=== PATIENT | male | born 1940 | race Caucasian/White ===

== ENCOUNTER 2021-04-07 12:19 | Inpatient (IN) ==
[2021-04-07] MEDS ORDERED: SODIUM CHLORIDE 0.9% 1000ML 1,000 ML IV ONE ×2 (12:37→14:08)
[2021-04-07 12:48] LABS: Hematocrit (blood only) 49.1 % (42-52); Hemoglobin 16.2 g/dL (14.0-18.0); Mean Corpuscular Hemoglobin 26.8 pg (25-34); Mean Corpuscular Volume 81.3 fL (80-100); Mean Platelet Volume 11.5 fL (7.4-10.4); Platelet Count 206 K/uL (130-400); RDW Coefficient of Variation 14.5 % (11.5-14.5); RDW Standard Deviation 43.3 fL (36.4-46.3); Red Blood Count 6.04 M/uL (4.7-6.1); White Blood Count 9.35 K/uL (4.8-10.8)
[2021-04-07 12:49] LABS: iSTAT Creatinine 1.5 mg/dl (0.6-1.3); iSTAT Hemoglobin 16.7 g/dl (14.0-18.0); iSTAT Ionized Calcium 1.22 mmol/l (1.12-1.32); iSTAT Potassium 4.2 mmol/L (3.3-5.0)
--- NOTE | 2021-04-07 12:53 | CT Scan Report ---
CT head/brain wo con CLINICAL HISTORY: Acute stroke like symptoms. Left-sided weakness and slurred speech COMPARISON STUDY: 05/22/2019 TECHNIQUE: Axial CT of the brain is performed from the vertex to the skull base. IV contrast was not administered for this examination. A dose lowering technique was utilized adhering to the principles of ALARA. CT DOSE: 614.27 mGy.cm FINDINGS: No intra or extra-axial mass lesions are visualized. There is no CT evidence of acute cortical infarc tion. There is no evidence of midline shift. There is no acute hemorrhage. No calvarial fractures ar e visualized. There are patchy white matter hypodensities likely on a small vessel basis. 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 There is no evidence of pathologic ventricular dilatation. There is no evidence of acute sinusitis IMPRESSION: No acute intracranial findings ACT 112: Negative or not required by law. Electronically signed by: German Ceballos M.D. 04/07/2021 12:52 PM
--- NOTE | 2021-04-07 12:55 | XRay Report ---
XR chest 1V portable CLINICAL HISTORY: Acute stroke like symptoms COMPARISON STUDY: 05/22/2019 FINDINGS: The heart is enlarged. There is aortic tortuosity/ectasia. There is slight interstitial pro minence which is likely accentuated due to a suboptimal inspiration. There is no lobar consolidation. There are no large pleural effusions. There is no overt failure. There is a total right shoulder art hroplasty.[ IMPRESSION: Cardiomegaly. No evidence of focal pulmonary consolidation. ACT 112: Negative or not required by law. Electronically signed by: German Ceballos M.D. 04/07/2021 12:53 PM
--- NOTE | 2021-04-07 12:57 | Emergency Department Note ---
Impression & Plan Acute cerebrovascular accident (CVA), Received intravenous tissue plasminogen activator (tPA) in emergency department, Hypertension ED Provider Note NAME: ROMERO MAST AGE: 80 SEX: M ARRIVES VIA: Walk-In INFORMANT: Patient, ED PROVIDER(S): Wes Terry MD CHIEF COMPLAINT: Stroke symptoms PLAN: Disposition: Admit Patient seen at: 1245 MEDICAL DECISION MAKING: The patient is a pleasant 80-year-old gentleman with a past medical history of hypertension who presents emergency department coming by his with concern for strokelike symptoms where she noticed that he quickly began confused and had trouble speaking with weakness on his right side where she feels confident he will see his normal self at 11 AM when he was sitting on the couch but has a entered the car to proceed with a trip that plan she noticed he could not speak and so brought him to emergency department. A stroke alert was activated from triage and CT of the head and CTA of the head and neck were performed. Shortly after arrival the patient began to have progressive improvement in his speech with only mild aphasia and right upper extremity weakness. On arrival the patient is in no acute distress, afebrile with blood pressure 160s/90s and vital signs otherwise stable. He appears clinically dry. He has trouble naming but is able to ascertain the name with prompts for objects such as watch and pen. He has very subtle right upper extremity pronator drift. Case was discussed with [facility] stroke neurologist Dr. Malcolm who was evaluating the patient via telestroke monitor. TPA was mixed upon arrival giving compelling history for stroke. CT of the head without evidence of acute ischemia or ICH. CTA of the head and neck with greater than 80% diameter left ICA stenosis and moderate cerebrovascular disease but no large vessel occlusion. WBC, H/H and platelets within normal limits. Chemistry without metabolic acidosis. BUN 22 and creatinine 1.4 proximal to prior value 2 years ago. Electrolytes and LFTs unremarkable. Troponin negative/undetectable. Completion of Dr. Malcolm's evaluation decision was made for administration of TPA and patient had no contraindications and consented to this with his at the bedside. Blood pressure did become elevated just prior to administration with systolic blood pressure in the 200s and diastolic blood pressure above 110 with heart rate in the upper 50s low 60s therefore blood pressure management was initiated with nicardipine with good effect and TPA was initiated. The patient was doing well following the bolus and drip was initiated. I was later called to the room by his RN who reported that he was having regression in his symptoms which were all consistent with his previous symptoms with worsening RUE weakness to 2/5, severe aphasia and dysarthria with drooling. No completely new symptoms were noted. He did not complain of headache. Thus TPA continued and bleed unlikely. His blood pressure at this point had decreased to 148/82 and so nicardipine was stopped and his head was lowered as regression likely related to the patient's pressure and perfusion. This did result in some improvement from this regression with decreased drooling improved strength in the right upper extremity and improved speech but still dysarthric which was more how he initi ally presented with symptoms and so still regression from his improved status. I did update Dr. Malcolm on this change and she agreed with management thus far and likely cause due to perfusion from decreased BP. She did agree that if his regression persist/worsens then a CTA can be reconsidered to exclude large vessel occlusion not present previously. COVID-19 PCR was negative. Upon completion of TPA patient's regression had improved though not yet improvement to his previous improvement. Thus repeat CTA deferred at this time. Case was discussed with Dr. Marsh, [facility] hospitalist, who will evaluate the patient for admission to ICU. CT head repeated en route to ICU and no evidence of bleed but subacute/chronic left occipital lobe infarct was noted. Triage Nursing notes reviewed and agree them. Prior medical records reviewed Vital Signs: reviewed and remarkable for hypertension. Differential diagnosis: Infection, dehydration, metabolic abnormality, hypo/hyperglycemia, electrolyte disturbance, anemia, hypoxia, cardiac sources, intracerebral event, toxicologic, neurologic, as well as other pathologies. ER treatment provided: See below. Diagnostics interpreted by me: ECG: Sinus rhythm with occasional PVCs, 66 bpm, no overt ST elevation or depression, QTC 431, qrs 112. Cardiac Monitoring: An order for continuous cardiac monitoring was placed and demonstrated Sinus rhythm with occasional PVCs, 66 bpm. Laboratory studies: See below Imaging studies: See below Consultation(s): Dr. Malcolm, [facility] telestroke neurology. Dr. Marsh [facility] hospitalist HPI: The patient is a pleasant 80-year-old gentleman with a past medical history of hypertension who presents emergency department coming by his with concern for strokelike symptoms where she noticed that he quickly began confused and had trouble speaking with weakness on his right side where she feels confident he will see his normal self at 11 AM when he was sitting on the couch but has a entered the car to proceed with a trip that plan she noticed he could not speak and so brought him to emergency department. A stroke alert was activated from triage and CT of the head and CTA of the head and neck were performed. Shortly after arrival the patient began to have progressive improvement in his speech with only mild aphasia and right upper extremity weakness. On arrival the patient is in no acute distress, afebrile with blood pressure 160s/90s and vital signs otherwise stable. He appears clinically dry. He has trouble naming but is able to ascertain the name with prompts for objects such as watch and pen. He has very subtle right upper extremity pronator drift. Case was discussed with [facility] stroke neurologist Dr. Malcolm who was evaluating the patient via telestroke monitor. TPA was mixed upon arrival giving compelling history for stroke. ROS: See above HPI for pertinent positives & negatives. A total of 10 systems reviewed and were otherwise negative. PAST MEDICAL HISTORY:See Below PAST SURGICAL HISTORY:See Below FAMILY HISTORY:See Below SOCIAL HISTORY:See Below HOME MEDICATIONS:See Below ALLERGIES:See Below VITALS:See Below PHYSICAL EXAMINATION: GENERAL: Awake, alert, fatigued-appearing, in no distress HENT: Normocephalic, atraumatic. Oropharynx with dry mucous membranes and otherwise unremarkable. EYES: Normal conjunctiva. Sclera non-icteric. EOMI. No nystamgus. PEARRL. NECK: Supple. No nuchal rigidity. FROM. No JVD. RESPIRATORY: Clear to auscultation. CARDIAC: Regular rate, normal rhythm. Extremities warm and well perfused. Pulses equal. ABDOMEN: Soft, non-distended. No tenderness to palpation. No rebound or guarding. No masses. RECTAL: Deferred. MUSCULOSKELETAL: Chest examination reveals no tenderness. The back is symmetrical on inspection without obvious abnormality. There is no CVA tenderness to palpation. No joint edema. LOWER EXTREMITIES: Calves are equal size bilaterally and non-tender. No edema. No discoloration. NEURO: Mild right lower facial droop. Mild expressive aphasia with trouble naming but is able to ascertain the name with prompts for objects such as watch and pen. No overt aphasia Subtle right upper extremity pronator drift. SKIN: No rash or jaundice noted. ED COURSE: Critical Care: I have personally spent greater than 75 minutes of critical care time in the direct management of this patient. This includes bedside care, interpretation of diagnostic studies, and testing, discussion with consultants, patient, and family members, and other required patient management activities. This 75 minutes is in excess of all separately billable procedures. Wes Terry MD Past Med/Surg History Medical History (Updated 04/08/21 @ 02:12 by Wes Terry MD) Asthma Gout Hypertension Hypertensive urgency Ischemic stroke Received intravenous tissue plasminogen activator (tPA) in emergency department Surgical History History of foot surgery Social History Smoking Status: Never smoker Hx Alcohol Use: No Hx Substance Use: No Preferred Language: Hungarian Supervisor Cell Maintenance Required: No Beliefs That Will Affect Care: None marital status: Current Living Situation: Spouse current occupational status: retired Other Information That Helps Us Care for You: No Feels Safe at Home: Yes Safety Concerns: Feels Safe At This Time Allergies Allergies Allergy/AdvReac Type Severity Reaction Status Date / Time No Known Allergies Allergy Verified 04/07/21 14:55 Home Meds Home Medications Medication Instructions Recorded Confirmed acetaminophen [Tylenol] 325 mg PO Q6H PRN 03/08/19 04/07/21 lisinopril-hydrochlorothiazide 1 tab PO QAM 03/08/19 04/07/21 Results & Data (ED) Vital Signs Vital Signs - 24 hr 04/07/21 12:21 04/07/21 12:50 04/07/21 12:52 Temperature 35.9 C L Temperature Source Temporal Artery Scan Pulse Rate 69 66 Pulse Rate [Apical] Pulse Rhythm Regular Pulse Rhythm [Apical] Pulse Strength Normal Pulse Strength [Apical] Respiratory Rate 20 20 Respiratory Effort / Characteristics Non-Labored Spontaneous Respiratory Depth Normal Respiratory Pattern Regular Blood Pressure 169/95 H Blood Pressure [Right Arm] Blood Pressure Mean 119 Blood Pressure Mean [Right Arm] Blood Pressure Position Sitting Blood Pressure Position [Right Arm] Pulse Oximetry 95 98 98 Oxygen Delivery Method Room Air Room Air Room Air Sepsis Recent Fever Within 48 Hours No Sepsis New/Unexplained Change in Mental Status No Sepsis Action Taken by Nursing No Action Required 04/07/21 13:58 04/07/21 14:13 04/07/21 14:28 Temperature 36.7 C 36.8 C Temperature Source Oral Oral Pulse Rate Pulse Rate [Apical] 63 61 68 Pulse Rhythm Pulse Rhythm [Apical] Regular Regular Regular Pulse Strength Pulse Strength [Apical] Normal Normal Normal Respiratory Rate 18 18 18 Respiratory Effort / Characteristics Non-Labored Spontaneous Non-Labored Spontaneous Non-Labored Spontaneous Respiratory Depth Normal Normal Normal Respiratory Pattern Regular Regular Blood Pressure Blood Pressure [Right Arm] 148/82 H 143/72 H 164/89 H Blood Pressure Mean Blood Pressure Mean [Right Arm] 104 95 114 Blood Pressure Position Blood Pressure Position [Right Arm] Lying Pulse Oximetry 99 100 98 Oxygen Delivery Method Room Air Room Air Room Air Sepsis Recent Fever Within 48 Hours Sepsis New/Unexplained Change in Mental Status Sepsis Action Taken by Nursing 04/07/21 14:43 Temperature 36.7 C Temperature Source Oral Pulse Rate Pulse Rate [Apical] 63 Pulse Rhythm Pulse Rhythm [Apical] Regular Pulse Strength Pulse Strength [Apical] Normal Respiratory Rate 18 Respiratory Effort / Characteristics Non-Labored Spontaneous Respiratory Depth Normal Respiratory Pattern Regular Blood Pressure Blood Pressure [Right Arm] 170/82 H Blood Pressure Mean Blood Pressure Mean [Right Arm] 111 Blood Pressure Position Blood Pressure Position [Right Arm] Pulse Oximetry 99 Oxygen Delivery Method Room Air Sepsis Recent Fever Within 48 Hours Sepsis New/Unexplained Change in Mental Status Sepsis Action Taken by Nursing Laboratory Data Attestation: I reviewed the patient's lab results. Result diagrams: 04/07/21 12:34 04/07/21 12:34 Lab Results 04/07/21 04/07/21 04/07/21 Range/Units 12:34 12:34 12:34 WBC 9.35 (4.8-10.8) K/uL RBC 6.04 (4.7-6.1) M/uL Hgb 16.2 (14.0-18.0) g/dL POC Hgb (14.0-18.0) g/dl Hct 49.1 (42-52) % POC Hct (42-52) % MCV 81.3 (80-100) fL MCH 26.8 (25-34) pg MCHC 33.0 (32-36) g/dL RDW Std Deviation 43.3 (36.4-46.3) fL RDW Coeff of Jessee 14.5 (11.5-14.5) % Plt Count 206 (130-400) K/uL MPV 11.5 H (7.4-10.4) fL PT 10.5 (9.0-12.0) Seconds INR 1.0 (0.9-1.1) APTT 23.4 (21.0-31.0) Seconds PTT Ratio 0.9 POC Sodium (135-144) mmol/L Sodium 139 (136-145) mmol/L POC Potassium (3.3-5.0) mmol/L Potassium 4.1 (3.5-5.1) mmol/L POC Chloride (101-112) mmol/L Chloride 107 (98-107) mmol/L Carbon Dioxide 27 (21-32) mmol/L POC Total CO2 (24-31) mmol/L Anion Gap 5.0 (3-11) POC Anion Gap (16-25) mmol/L POC BUN (7-18) mg/dl BUN 22 H (7-18) mg/dl Creatinine 1.40 (0.6-1.4) mg/dl POC Creatinine (0.6-1.3) mg/dl Est Cr Clr Drug Dosing 46.6 ml/min Est GFR ( Amer) 55.0 ml/min Est GFR (Non-Af Amer) 47.5 ml/min BUN/Creatinine Ratio 15.9 (10-20) Glucose 147 H (70-99) mg/dl POC Glucose (other) (70-99) mg/dl Calcium 8.7 (8.5-10.1) mg/dl POC Ioniz Calcium Marixa (1.12-1.32) mmol/l Phosphorus 2.7 (2.5-4.9) mg/dl Magnesium 2.3 (1.8-2.4) mg/dl Total Bilirubin 0.6 (0.2-1) mg/dl AST 14 L (15-37) U/L ALT 17 (12-78) U/L Alkaline Phosphatase 78 (45-117) U/L Troponin I < 0.015 (0-0.045) ng/ml Total Protein 7.0 (6.4-8.2) gm/dl Albumin 4.1 (3.4-5.0) gm/dl Globulin 2.9 (2.5-4.0) gm/dl Albumin/Globulin Ratio 1.4 (0.9-2) COVID-19 Eval Order SARS-CoV-2 (PCR) (Negative) 04/07/21 04/07/21 04/07/21 Range/Units 12:36 13:00 13:00 WBC (4.8-10.8) K/uL RBC (4.7-6.1) M/uL Hgb (14.0-18.0) g/dL POC Hgb 16.7 (14.0-18.0) g/dl Hct (42-52) % POC Hct 49 (42-52) % MCV (80-100) fL MCH (25-34) pg MCHC (32-36) g/dL RDW Std Deviation (36.4-46.3) fL RDW Coeff of Jessee (11.5-14.5) % Plt Count (130-400) K/uL MPV (7.4-10.4) fL PT (9.0-12.0) Seconds INR (0.9-1.1) APTT (21.0-31.0) Seconds PTT Ratio POC Sodium 140 (135-144) mmol/L Sodium (136-145) mmol/L POC Potassium 4.2 (3.3-5.0) mmol/L Potassium (3.5-5.1) mmol/L POC Chloride 104 (101-112) mmol/L Chloride (98-107) mmol/L Carbon Dioxide (21-32) mmol/L POC Total CO2 26 (24-31) mmol/L Anion Gap (3-11) POC Anion Gap 15.0 L (16-25) mmol/L POC BUN 22 H (7-18) mg/dl BUN (7-18) mg/dl Creatinine (0.6-1.4) mg/dl POC Creatinine 1.5 H (0.6-1.3) mg/dl Est Cr Clr Drug Dosing ml/min Est GFR ( Amer) ml/min Est GFR (Non-Af Amer) ml/min BUN/Creatinine Ratio (10-20) Glucose (70-99) mg/dl POC Glucose (other) 146 H (70-99) mg/dl Calcium (8.5-10.1) mg/dl POC Ioniz Calcium Marixa 1.22 (1.12-1.32) mmol/l Phosphorus (2.5-4.9) mg/dl Magnesium (1.8-2.4) mg/dl Total Bilirubin (0.2-1) mg/dl AST (15-37) U/L ALT (12-78) U/L Alkaline Phosphatase (45-117) U/L Troponin I (0-0.045) ng/ml Total Protein (6.4-8.2) gm/dl Albumin (3.4-5.0) gm/dl Globulin (2.5-4.0) gm/dl Albumin/Globulin Ratio (0.9-2) COVID-19 Eval Order Covid19 at [facility] SARS-CoV-2 (PCR) NEGATIVE (Negative) Administered Medications Nicardipine HCl 25 mg/ Sodium (Chloride) 250 mls @ 50 mls/hr IV .Q5H TIFF; Protocol Stop: 05/07/21 13:44 Last Admin: 04/07/21 22:49 Dose: 5 mg/hr, 50 mls/hr Documented by: [id number] Titration: 04/07/21 16:27 Dose: 0 mg/hr, 0 mls/hr Documented by: [id number] Titration: 04/07/21 13:55 Dose: 0 mg/hr, 0 mls/hr Documented by: [id number] Admin: 04/07/21 13:37 Dose: 5 mg/hr, 50 mls/hr Documented by: [id number] Cosigned by: [id number] Sodium Chloride (Nss 1000ml) 1,000 mls @ 80 mls/hr IV .[id number] [facility] Stop: 05/07/21 21:14 Last Admin: 04/07/21 21:31 Dose: 80 mls/hr Documented by: [id number] Labetalol HCl (Labetalol Hcl Iv 5 Mg/Ml 20ml) 10 mg IV Q15M PRN PRN Reason: SBP >180 or DBP >105 mmHg Stop: 04/08/21 15:09 Last Admin: 04/07/21 20:58 Dose: 10 mg Documented by: [id number] Cosigned by: [id number] Admin: 04/07/21 19:40 Dose: 10 mg Documented by: [id number] Cosigned by: [id number] Discontinued Medications Alteplase, Recombinant (Tpa For Stroke) 1 ea IV NOW STA; Protocol Stop: 04/07/21 13:28 Last Admin: 04/07/21 14:30 Dose: Not Given Documented by: [id number] Gadobutrol (Gadobutrol 65ml Vial) 10 ml IV ONCE ONE Stop: 04/08/21 01:30 Last Admin: 04/08/21 01:30 Dose: 10 ml Documented by: [id number] Hydralazine HCl (Hydralazine Hcl 20 Mg/Ml Vial) 10 mg IV NOW STA Stop: 04/07/21 18:15 Last Admin: 04/07/21 18:27 Dose: Not Given Documented by: [id number] Hydralazine HCl (Hydralazine Hcl 20 Mg/Ml Vial) Confirm Administered Dose 20 mg .ROUTE .STK-MED ONE Stop: 04/07/21 18:20 Last Increment: 04/07/21 18:27 Dose: 10 mg Documented by: [id number] Sodium Chloride (Nss 1000ml) 1,000 mls @ 999 mls/hr IV .Q1H1M ONE Stop: 04/07/21 13:37 Last Infusion: 04/07/21 14:57 Dose: 0 mls/hr Documented by: [id number] Admin: 04/07/21 12:57 Dose: 999 mls/hr Documented by: [id number] Alteplase, Recombinant 8.4 mg/ (Syringe) 8.4 mls @ 8.4 mls/min IV ONCE ONE Stop: 04/07/21 13:38 Last Admin: 04/07/21 13:42 Dose: 8.4 mls/min Documented by: [id number] Cosigned by: [id number] Alteplase, Recombinant 76 mg/ (EMPTY BAG) 76 mls @ 76 mls/hr IV ONCE ONE Stop: 04/07/21 13:39 Last Infusion: 04/07/21 14:43 Dose: 0 mls/hr Documented by: [id number] Cosigned by: [id number] Admin: 04/07/21 13:43 Dose: 76 mls/hr Documented by: [id number] Cosigned by: [id number] Sodium Chloride (Nss 1000ml) 1,000 mls @ 999 mls/hr IV .Q1H1M ONE Stop: 04/07/21 15:08 Last Infusion: 04/07/21 19:34 Dose: 0 mls/hr Documented by: [id number] Admin: 04/07/21 14:15 Dose: 999 mls/hr Documented by: [id number] Miscellaneous (Stat Iv Infusion Titration Per Protocol) 1 ea N/A NOW STA; Protocol Stop: 04/07/21 13:34 Last Admin: 04/07/21 14:31 Dose: Not Given Documented by: [id number] Imaging Data Radiologist's Impression: Chest X-Ray 04/07/21 12:32 XR chest 1V portable CLINICAL HISTORY: Acute stroke like symptoms COMPARISON STUDY: 05/22/2019 FINDINGS: The heart is enlarged. There is aortic tortuosity/ectasia. There is slight interstitial prominence which is likely accentuated due to a suboptimal inspiration. There is no lobar consolidation. There are no large pleural effusions. There is no overt failure. There is a total right shoulder arthroplasty.[ IMPRESSION: Cardiomegaly. No evidence of focal pulmonary consolidation. ACT 112: Negative or not required by law. Electronically signed by: German Ceballos M.D. 04/07/2021 12:[address] 04/07/21 12:32 CT head/brain wo con CLINICAL HISTORY: Acute stroke like symptoms. Left-sided weakness and slurred speech COMPARISON STUDY: 05/22/2019 TECHNIQUE: Axial CT of the brain is performed from the vertex to the skull base. IV contrast was not administered for this examination. A dose lowering technique was utilized adhering to the principles of ALARA. CT DOSE: 614.27 mGy.cm FINDINGS: No intra or extra-axial mass lesions are visualized. There is no CT evidence of acute cortical infarction. There is no evidence of midline shift. There is no acute hemorrhage. No calvarial fractures are visualized. There are patchy white matter hypodensities likely on a small vessel basis. 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 There is no evidence of pathologic ventricular dilatation. There is no evidence of acute sinusitis IMPRESSION: No acute intracranial findings ACT 112: Negative or not required by law. Electronically signed by: German Ceballos M.D. 04/07/2021 12:52 PM Head CTA 04/07/21 12:38 CT angio head w con CLINICAL HISTORY: Stroke Like Symptoms TECHNIQUE: CT angiography of the head was performed in a dynamic helical fashion during intravenous administration of 116 cc of Optiray. MIP imaging was performed. A dose lowering technique was utilized adhering to the principles of ALARA. CT DOSE: 553.83 mGy.cm COMPARISON STUDY: No previous studies for comparison. FINDINGS: There are no lesion suspicious for aneurysm. There are no major intracranial branch occlusions. The dural venous sinuses appear patent. There are mild to moderate multifocal intracranial arterial irregularities. Atherosclerotic disease favored over vasculitis given the patient's age IMPRESSION: 1. Mild to moderate multifocal intracranial arterial irregularities. Atherosclerotic disease favored over vasculitis given the patient's age. ACT 112: Negative or not required by law. Electronically signed by: German Ceballos M.D. 04/07/2021 1:06 PM Neck CTA 04/07/21 12:38 CT angio neck with con CLINICAL HISTORY: Stroke Like Symptoms COMPARISON STUDY: No previous studies for comparison. TECHNIQUE: CT angiography was performed from the aortic arch to the skull base. MIP imaging was performed. The patient was scanned in a dynamic helical fashion during intravenous administration of 118 cc of Optiray. A dose lowering technique was utilized adhering to the principles of ALARA. CT DOSE: Technique: CT angiogram of the carotid and vertebral arteries was obtained using intravenous contrast and 3-D reconstruction. NASCET criteria was utilized. Findings: There is moderate calcific plaque at the level of the right carotid bulb, without evidence of a hemodynamically significant carotid stenosis. There is no evidence for carotid dissection or occlusion. There is extensive atheromatous plaque/hemorrhage at the level left carotid bulb with a resultant greater than 80% diameter left ICA stenosis. There is a dominant left vertebral artery. The nondominant right vertebral artery appears to terminate in a PICA branch. There are minor nonhemodynamically significant stenoses within the basilar artery. IMPRESSION: Extensive atheromatous plaque/hemorrhage at the level left carotid bulb with a greater than 80% diameter left ICA stenosis ACT 112: Negative or not required by law. Electronically signed by: German Ceballos M.D. 04/07/2021 1:00 PM Discharge Plan Visit Data Chief Complaint: Stroke/CVA Symptoms Stated Complaint: POSSIBLE STROKE ED Provider: Wes Terry Discharge Problem: Acute cerebrovascular accident (CVA), Received intravenous tissue plasminogen activator (tPA) in emergency department, Hypertension Patient Disposition: Admitted As Inpatient Discharge Instructions Interventions: ED Discharge Assessment Last Done: 04/07/21 15:40 Discharge Problem: Hypertension Qualifiers: Hypertension type: unspecified Qualified Code(s): I10 - Essential (primary) hypertension
[2021-04-07 12:58] LABS: Partial Thromboplastin Ratio 0.9; Partial Thromboplastin Time 23.4 Seconds (21.0-31.0); Prothrombin Time 10.5 Seconds (9.0-12.0)
--- NOTE | 2021-04-07 13:01 | CT Scan Report ---
CT angio neck with con CLINICAL HISTORY: Stroke Like Symptoms COMPARISON STUDY: No previous studies for comparison. TECHNIQUE: CT angiography was performed from the aortic arch to the skull base. MIP imaging was perfo rmed. The patient was scanned in a dynamic helical fashion during intravenous administration of 118 c c of Optiray. A dose lowering technique was utilized adhering to the principles of ALARA. CT DOSE: Technique: CT angiogram of the carotid and vertebral arteries was obtained using intravenous contrast and 3-D reconstruction. NASCET criteria was utilized. Findings: There is moderate calcific plaque at the level of the right carotid bulb, without evidence of a hemod ynamically significant carotid stenosis. There is no evidence for carotid dissection or occlusion. There is extensive atheromatous plaque/hemorrhage at the level left carotid bulb with a resultant gre ater than 80% diameter left ICA stenosis. There is a dominant left vertebral artery. The nondominant right vertebral artery appears to terminat e in a PICA branch. There are minor nonhemodynamically significant stenoses within the basilar artery . IMPRESSION: Extensive atheromatous plaque/hemorrhage at the level left carotid bulb with a greater than 80% diame ter left ICA stenosis ACT 112: Negative or not required by law. Electronically signed by: German Ceballos M.D. 04/07/2021 1:00 PM
[2021-04-07 13:06] LABS: Alanine Aminotransferase 17 U/L (12-78); Albumin Level 4.1 gm/dl (3.4-5.0); Aspartate Aminotransferase 14 U/L (15-37); BUN Creatinine Ratio 15.9 (10-20); Blood Urea Nitrogen 22 mg/dl (7-18); Calcium 8.7 mg/dl (8.5-10.1); Carbon Dioxide 27 mmol/L (21-32); Chloride 107 mmol/L (98-107); Creatinine Clr Calc Pharmacy 46.6 ml/min; Est GFR (Non-African American) 47.5 ml/min; Glucose 147 mg/dl (70-99); Magnesium 2.3 mg/dl (1.8-2.4); Potassium 4.1 mmol/L (3.5-5.1); Sodium 139 mmol/L (136-145)
--- NOTE | 2021-04-07 13:08 | CT Scan Report ---
CT angio head w con CLINICAL HISTORY: Stroke Like Symptoms TECHNIQUE: CT angiography of the head was performed in a dynamic helical fashion during intravenous a dministration of 116 cc of Optiray. MIP imaging was performed. A dose lowering technique was utilized adhering to the principles of ALARA. CT DOSE: 553.83 mGy.cm COMPARISON STUDY: No previous studies for comparison. FINDINGS: There are no lesion suspicious for aneurysm. There are no major intracranial branch occlusi ons. The dural venous sinuses appear patent. There are mild to moderate multifocal intracranial arter ial irregularities. Atherosclerotic disease favored over vasculitis given the patient's age IMPRESSION: 1. Mild to moderate multifocal intracranial arterial irregularities. Atherosclerotic disease favored over vasculitis given the patient's age. ACT 112: Negative or not required by law. Electronically signed by: German Ceballos M.D. 04/07/2021 1:06 PM
[2021-04-07 13:11] LABS: Albumin Globulin Ratio 1.4 (0.9-2); Alkaline Phosphatase 78 U/L (45-117); Bilirubin,Total 0.6 mg/dl (0.2-1); Globulin 2.9 gm/dl (2.5-4.0); Phosphorus 2.7 mg/dl (2.5-4.9); Troponin I < 0.015 ng/ml (0-0.045)
[2021-04-07] MEDS ORDERED: TPA for Stroke IV STA (13:27)
[2021-04-07] MEDS ORDERED: No Aspirin within 24 hrs of TPA for Stroke PO SCH (13:30)
[2021-04-07] MEDS ORDERED: STAT IV Infusion **Titration per Protocol STA (13:33)
[2021-04-07] MEDS: niCARdipine 25 MG in SODIUM CHLORIDE 0.9% 240 ML IV SCH ×2 (13:37→22:49)
[2021-04-07] MEDS ORDERED: Alteplase Bolus 8.4 MG in SYRINGE 0 ML IV ONE (13:37)
[2021-04-07] MEDS ORDERED: ALTEPLASE, RECOMBINANT 76 MG in EMPTY BAG 0 ML IV ONE (13:38)
[2021-04-07] MEDS ORDERED: PRIMARY PLUMSET, PE LINED TUBING, 113 IN, NON-DEHP (2260-0500) IV ONE (13:38)
[2021-04-07] MEDS ORDERED: ICU PROTOCOL FOR HYPERGLYCEMIA PRN (14:57)
[2021-04-07] MEDS ORDERED: PHARMACIST DISCHARGE MED REC CONSULT PRN (15:05)
--- NOTE | 2021-04-07 15:19 | History & Physical Report ---
Date of Service April 07, 2021 Assessment & Plan (1) Ischemic stroke: S/P tPA Patient will be admitted to the ICU for close monitoring. Ischemic stroke order set Maintain systolic blood pressure less than 185 and diastolic blood pressure less than 110. repeat CT head due to worsening of stroke symptoms. Orderv MRI head CONSULT NEURO. (2) Received intravenous tissue plasminogen activator (tPA) in emergency department: as above. (3) Hypertensive urgency: hold meds as stated above (4) Gout: History of Present Illness Chief Complaint: dysarthria Primary Care Provider: Krystyna Ortez PA-C 80 yo male comes into the ER with PMH described below. He came in with dysarthia which occured at 11. He was in the car with his when this occurred, and they were planning on going on a trip. However, once she noticed dysarthia she took him to the ER. Telestroke consult called and patient was given tPA. Initially symptoms improved, however, the dysarthia and right arm weakness returned. CT head and CTA were negative, admission was called. Allergies Allergy/AdvReac Type Severity Reaction Status Date / Time No Known Allergies Allergy Verified 04/07/21 14:55 Home Medications Medication Instructions Recorded Confirmed Type acetaminophen [Tylenol] 325 mg PO Q6H PRN 03/08/19 04/07/21 History lisinopril-hydrochlorothiazide 1 tab PO QAM 03/08/19 04/07/21 History Past Med/Surg History Medical History Asthma Gout Hypertension Hypertensive urgency Ischemic stroke Received intravenous tissue plasminogen activator (tPA) in emergency department Surgical History History of foot surgery Social History Smoking Status: Never smoker Hx Alcohol Use: No Hx Substance Use: No Preferred Language: [place] Citizen [employer] Offbearer Required: No Beliefs That Will Affect Care: None marital status: Current Living Situation: Spouse current occupational status: retired Other Information That Helps Us Care for You: No Feels Safe at Home: Yes Safety Concerns: Feels Safe At This Time Review of Systems Constitutional: no sweats, no body aches and no malaise Eyes: no diplopia and no decreased night vision Ear, Nose, Mouth, Throat: no ear trauma and no hyperacusis Respiratory: no cough and no change in sputum Cardiovascular: no chest pain and no chest pain with activity Gastrointestinal: no bloating Genitourinary: no dysuria and no urinary frequency Integumentary: no acne and no rash Neurologic: + tingling and + abnormal movements Psychiatric: no behavioral changes and no hopelessness Hematologic / Lymphatic: + easy bleeding Allergy / Immunological: no lip swelling Physical Exam Constitutional: WD/WN, vitals as above well developed Eyes: PERRL, conjunctivae normal, anicteric sclerae ENMT: external ear and nose normal, oropharynx normal Neck: trachea midline, no thyromegaly Respiratory: normal respiratory effort, lungs clear to auscultation Cardiovascular: RRR, no murmur, no edema Gastrointestinal (Abdomen): normal bowel sounds, soft, nontender, no hepatosplenomegaly Musculoskeletal: no cyanosis or clubbing, extremities motor strength 5/5 Neurologic: Decreased plant breeder of right hand (about 3/5), 4/4 on pronation/suppination of right arm/ right facial droop, dysarthria Results & Data Results & Data ([facility]) Vital Signs (Past 12 Hours) Vital Signs Temp Pulse Pulse Resp BP BP Pulse Ox 04/07/21 14:43 36.7 C 63 18 170/82 H 99 04/07/21 14:28 36.8 C 68 18 164/89 H 98 04/07/21 14:13 36.7 C 61 18 143/72 H 100 04/07/21 13:58 63 18 148/82 H 99 04/07/21 12:52 98 04/07/21 12:50 66 20 98 04/07/21 12:21 35.9 C L 69 20 169/95 H 95 Critical Care Time Critical Care Time: Yes Total Critical Care Time: 31 PG Care Time/CCT Total # of Minutes Spent Total Time Spent with Patient: Total time spent is greater than 50% in coordination of care (as documented) at patient's floor/unit and/or counseling patient: Critical Care Time: Yes Total Critical Care Time: 31 Coding Level of Care Code 43944 Initial Inpt Care Lvl 3 Diagnoses Ischemic stroke I63.9 Received intravenous tissue plasminogen activator (tPA) in emergency department Z92.82 Hypertensive urgency I16.0 Gout M10.9 Additional Codes Critical Care Time - Critical Care Time: Yes ([id number]) Time Spent (min) 55
--- NOTE | 2021-04-07 16:01 | Critical Care Consultation ---
Date of Consultation April 07, 2021 Assessment & Plan (1) Ischemic stroke: Neurologic: Status post TPA administration. Continue with post TPA protocol. Will obtain a CT head 24 hours after TPA administration to evaluate for bleed post TPA. Will consult neurology and obtain an MRI of the head. Will need echo with bubble study. PT/OT/speech therapy will be ordered. Maintain systolic blood pressure less than 185 and diastolic blood pressure less than 110. Pulmonary: No issues presently. Cardiovascular: Maintain systolic blood pressure less than 185 and diastolic blood pressure less than 110. Hold lisinopril and hydrochlorothiazide today. Gastrointestinal: N.p.o. today. Renal: No significant issues at present. Creatinine 1.4. Infectious disease: No significant issues. Hematologic: Monitor for signs of bleeding status post TPA. Endocrine: [place] hypoglycemia protocol if blood glucose greater than 180. Monitor for hypoglycemia. VTE prophylaxis: On hold due to TPA administration. CODE STATUS: Full code Family at bedside: None available at bedside Disposition: Remain in the ICU (2) Received intravenous tissue plasminogen activator (tPA) in emergency department: (3) Hypertensive urgency: History of Present Illness Reason for Consultation: Ischemic stroke status post TPA administration History of Present Illness 80-year-old male with a past medical history of hypertension who presented to the ER due to strokelike symptoms. He had trouble with speaking and confusion. He also had weakness on his right side. His last known normal time was around 11 AM. His noted that he could not speak properly while in a car and brought him to the ER. She also noted that he appeared to be drooling. She called a family member who told her to take her to the hospital. Stroke alert was activated in the ER. Plan was for administration of TPA. He did have mild elevation in his blood pressure and nicardipine was brief ly utilized. His blood pressure then stabilized and he was given TPA per protocol. TPA was administered at 1:[address] of his head was completed 04/07/2021 with no acute intracranial findings. Head CTA completed with mild to moderate multi focal intracranial arterial irregularities noted. Neck CTA demonstrated extensive atheromatous plaque/hemorrhage at the level of the carotid bulb with greater than 80% diameter of the left internal carotid artery stenosis. Allergies Allergy/AdvReac Type Severity Reaction Status Date / Time No Known Allergies Allergy Verified 04/07/21 14:55 Home Medications Medication Instructions Recorded Confirmed Type acetaminophen [Tylenol] 325 mg PO Q6H PRN 03/08/19 04/07/21 History lisinopril-hydrochlorothiazide 1 tab PO QAM 03/08/19 04/07/21 History Patient History Medical History (Updated 04/07/21 @ 15:56 by Main Aldana MD) Asthma Gout Hypertension Hypertensive urgency Ischemic stroke Received intravenous tissue plasminogen activator (tPA) in emergency department Surgical History History of foot surgery Social History Smoking Status: Never smoker Hx Alcohol Use: No Hx Substance Use: No Preferred Language: Maldivian marital status: Current Living Situation: Spouse current occupational status: retired Feels Safe at Home: Yes Review of Systems Review of Systems: All systems reviewed & are unremarkable except as noted in HPI & below Physical Exam Constitutional: WD/WN, vitals as above Respiratory: normal respiratory effort, lungs clear to auscultation Cardiovascular: RRR, no murmur, no edema Gastrointestinal (Abdomen): normal bowel sounds, soft, nontender, no hepatosplenomegaly Musculoskeletal: Head/Neck/Chest: normocephalic and head atraumatic Skin: no rashes, warm and dry Neurologic: Mild right facial droop noted. Decreased handgrip approximately 3 out of 5 on the right. Diminished handgrip on the left as well which is 4 out of 5. Appears to have mild expressive and receptive aphasia. Psychiatric: A+Ox3, euthymic affect Results & Data Results & Data ([facility]) Vital Signs (Past 12 Hours) Vital Signs Temp Pulse Pulse Resp BP BP Pulse Ox 04/07/21 15:43 98.1 F 66 20 182/89 H 97 04/07/21 15:28 98.1 F 62 20 178/81 H 99 04/07/21 15:13 98.4 F 69 18 184/84 H 100 04/07/21 14:58 71 20 158/87 H 99 04/07/21 14:43 98.1 F 63 18 170/82 H 99 04/07/21 14:28 98.2 F 68 18 164/89 H 98 04/07/21 14:13 98.1 F 61 18 143/72 H 100 04/07/21 13:58 63 18 148/82 H 99 04/07/21 12:52 98 04/07/21 12:50 66 20 98 04/07/21 12:21 96.6 F L 69 20 169/95 H 95 Vital signs, labs and imaging reviewed Coding Level of Care Code 38684 Inpt Consult Level 4 Diagnoses Ischemic stroke I63.9 Received intravenous tissue plasminogen activator (tPA) in emergency department Z92.82 Hypertensive urgency I16.0
--- NOTE | 2021-04-07 16:13 | CT Scan Report ---
CT head/brain wo con CLINICAL HISTORY: Right sided weakness, aphasia, s/p tpa COMPARISON STUDY: 04/07/2021 TECHNIQUE: Axial CT of the brain is performed from the vertex to the skull base. IV contrast was not administered for this examination. A dose lowering technique was utilized adhering to the principles of ALARA. CT DOSE: 614.27 mGy.cm FINDINGS: No intra or extra-axial mass lesions are visualized. There is no CT evidence of acute cortical infarc tion. There is no evidence of midline shift. There is no acute hemorrhage. No calvarial fractures ar e visualized. There are patchy white matter hypodensities likely on a small vessel basis. There is no evidence of pathologic ventricular dilatation. There is subacute/chronic left occipital l obe infarct. There is no evidence of acute sinusitis IMPRESSION: 1. Subacute/chronic left occipital lobe infarct 2. Moderate white matter disease 3. No evidence of acute hemorrhage ACT 112: Negative or not required by law. Electronically signed by: German Ceballos M.D. 04/07/2021 4:11 PM
--- NOTE | 2021-04-07 18:04 | CT Scan Report ---
CT head/brain wo con CLINICAL HISTORY: Worsening right upper extremity weakness and achalasia COMPARISON STUDY: 04/07/2021 TECHNIQUE: Axial CT of the brain is performed from the vertex to the skull base. IV contrast was not administered for this examination. A dose lowering technique was utilized adhering to the principles of ALARA. CT DOSE: 729.78 mGycm FINDINGS: No intra or extra-axial mass lesions are visualized. There is no CT evidence of acute cortical infarc tion. There is no evidence of midline shift. There is no acute hemorrhage. No calvarial fractures ar e visualized. There are patchy white matter hypodensities likely on a small vessel basis. There is a probable small acute/subacute left occipital infarct. There is no evidence of pathologic ventricular dilatation. There is no evidence of acute sinusitis IMPRESSION: 1. No significant change from the prior study. No evidence of acute hemorrhage. Moderate white matter disease. 2. Given the progressive neurologic symptoms, an MRI might be considered in follow-up for further canelo luation. 3. No evidence of acute hemorrhage. ACT 112: Negative or not required by law. Electronically signed by: German Ceballos M.D. 04/07/2021 6:03 PM
[2021-04-07] MEDS ORDERED: hydrALAZINE HCL 20 MG/ML VIAL IV STA (18:14)
[2021-04-07] MEDS ORDERED: hydrALAZINE HCL 20 MG/ML VIAL ONE (18:19)
[2021-04-07] MEDS ORDERED: hydrALAZINE HCL 20 MG/ML VIAL IV PRN (19:05)
[2021-04-07] MEDS: LABETALOL HCL IV 5 MG/ML 20ML IV PRN ×2 (19:40→20:58)
--- NOTE | 2021-04-07 21:07 | Communication Note ---
Date of Service: April 07, [id number]: Patient evaluated at bedside with nursing concern for flaccid paralysis of the RIGHT upper extremity. On exam, patient is not moving his RIGHT upper e xtremity. No range of motion noted. He has full range of motion of the bilateral lower extremities with strength equal bilaterally. Patient has RIGHT- sided facial droop as well as LEFT-sided gaze. I did speak to my attending regarding the symptoms. Orders had been placed previously for MRI, however given the waxing and waning symptomatology and profound state of the symptoms, we did agree that contacting household coordinator team would be most appropriate in this situation. 2047: I did reach out to . I was able to speak with Dr. Lopez. After providing historical information as well as imaging studies performed at our institution, she has concerned the patient likely ruptured plaque in the carotid artery with ongoing showering of clots. Unfortunately, while the patient had received TPA within the last few hours, this does limit management of the carotid disease at this point. Her suggestion is to maintain that the patient is lying flat which she currently is. Additionally, she suggests ongoing IV fluids to help with ongoing perfusion. She agrees with blood pressure control with a systolic less than 180s per post TPA guidelines. I did discuss imaging modalities including utility of MRI and MRA of the neck. She agrees that MRA of the neck may be helpful if there has been evolution of the carotid disease/injury. She did initially offer that if we did not feel comfortable keeping the patient with the symptoms that we could transfer patient to their institution, however she did offer that there is likely nothing else that they would do outside of what we are doing currently. At this point, I feel the best decision is to proceed with advanced imaging studies including MRI/MRI of the brain and MRI of the neck. Certainly if there has been profound change or worsening disease state, we will reach back out to their institution. Additional conversations included initiation of aspirin loading, however she was hesitant to start aspirin within 24 hours of administration of TPA. She agrees that pending patient's extent of stroke and ongoing symptomatology, future CEA is likely in the patient's future. Regardless, CEA is something that would not be performed on emergent basis. At this point, we will continue with judicious blood pressure control to maintain systolics less than 180. I will institute normal saline at a rate of 80 mL's per hour to help with cerebral perfusion. If this results in ongoing hypertension, we will institute nicardipine drip to maintain consistent blood pressures. Ongoing stroke precautions in place. I have personally spent 35 minutes of critical care time in the direct management of this patient. This is a life/limb threatening event. This includes time spent evaluating patient, direct bedside care, chart review, placing orders, interpretation of diagnostic studies, discussion with consultants, patient, and family members, as well as other required patient management activities. This time is exclusive of all separately billable procedures, and teaching time and separate from and in addition to any other critical care service time. Coding Level of Care Code Critical Care ea addt'l 30 min Time Spent (min) 35
[2021-04-07] MEDS: SODIUM CHLORIDE 0.9% 1000ML 1,000 ML IV SCH (21:31)
[2021-04-08] MEDS ORDERED: GADOBUTROL 65ML VIAL IV ONE (01:29)
[2021-04-08] MEDS: niCARdipine 25 MG in SODIUM CHLORIDE 0.9% 240 ML IV SCH ×6 (05:22→23:02)
[2021-04-08] MEDS ORDERED: ACETAMINOPHEN 1,000 MG/100 ML VIAL IV STA ×2 (05:50→21:53)
--- NOTE | 2021-04-08 07:57 | Magnetic Resonance Report ---
MRI OF THE BRAIN WITHOUT CONTRAST CLINICAL HISTORY: worsening CVA s/s s/p TPA COMPARISON STUDY: Head CT and CTA of the head April 07, 2021. TECHNIQUE: Utilizing a 1.5 Lana magnet and dedicated coil, multiplanar, multiecho imaging of the bra in was performed without IV contrast. FINDINGS: Note is made of extensive restricted diffusion involving the left parietal, occipital and p osterior left temporal lobes. This extends into the insular cortex. Several foci of acute infarction also noted within the left basal ganglia. There is no evidence for acute hemorrhage. There is minimal mass effect with mild sulcal effacement. Ventricular system is unremarkable. Basal cisterns are azul nt. White matter T2 hyperintense foci suggest small vessel disease. There are no extra axial collecti ons. Calvarial signal is normal. IMPRESSION: Extensive acute infarcts within the left cerebral hemisphere, predominantly within the po sterior left middle cerebral artery distribution as well as involvement of the left basal ganglia. Mi nimal mass effect with sulcal effacement. No acute intracranial hemorrhage. ACT 112: Negative or not required by law. Electronically signed by: Marcelino Rai M.D. 04/08/2021 7:56 AM
--- NOTE | 2021-04-08 08:02 | Critical Care Progress Note ---
Date of Service April 08, 2021 Assessment & Plan (1) Ischemic stroke: Patient was discussed in multidisciplinary rounds. Neurologic: Status post TPA administration. MRA of the neck with high-grade stenosis in the left carotid bulbproximal internal carotid. Diminutive right vertebral artery. MRA of the head with an infarct involving the left temporalparietal lobes and portions of the left basal ganglial reynoso radiata regions and to a lesser degree frontal, occipital and insular cortex regions. Left M2 branch occlusions. Prognosis is likely very poor. Continue IV fluids to help perfuse the brain and improve cerebral perfusion pressure. Neurology consults have been placed. [facility] is aware of the patient. Palliative care consult has been placed as well. We will obtain a CT head 24 hours status post TPA administration to evaluate for areas of hemorrhage. Pulmonary: No issues presently. Mentation is poor, however, he is maintaining his airway at this time. Cardiovascular: Maintain systolic blood pressure less than 185 and diastolic blood pressure less than 110. We are keeping the patient flat continue IV fluids to help with cerebral perfusion pressure. Gastrointestinal: Strict n.p.o. due to altered mental status. Renal: No significant issues at present. Creatinine 1.5. Infectious disease: No significant issues. Mild fever likely related to stroke. Hematologic: Monitor for signs of bleeding status post TPA. Endocrine: [place] hypoglycemia protocol if blood glucose greater than 180. Monitor for hypoglycemia. VTE prophylaxis: We will start SCDs. CODE STATUS: Full code Family at bedside: Attempting to call the patient's to give her an update. Palliative care has been consulted. CRITICAL CARE TIME - I have personally spent 36 minutes of critical care time in the direct management of this patient. This is a life/limb threatening event. This includes time spent evaluating patient, direct bedside care, chart review, placing orders, interpretation of diagnostic studies, discussion with consultants, patient, and family members, as well as other required patient management activities. This time is exclusive of all separately billable procedures, and teaching time and separate from and in addition to any other critical care service time. (2) Received intravenous tissue plasminogen activator (tPA) in emergency department: (3) Hypertensive urgency: (4) Carotid artery stenosis: Admission and Anticipated Discharge Date Admission Date: April 07, 2021 Subjective Patient with worsening mentation overnight and worsening neurological symptoms. MRI/MRA of his head and neck were obtained. [facility] stroke department was contacted as well. Patient unable to give any history today as he is profoundly altered and essentially obtunded. Review of Systems Review of Systems: Unobtainable due to reduced consciousness Physical Exam Constitutional: + acute distress Eyes: Left gaze preference. Respiratory: Tachypneic. Rhonchorous bilaterally. Cardiovascular: RRR, no murmur, no edema Gastrointestinal (Abdomen): normal bowel sounds, soft, nontender, no hepatosplenomegaly Skin: no rashes, warm and dry Neurologic: Flaccid limbs bilaterally. Left gaze preference. Nonresponsive to commands. Psychiatric: A+Ox3, euthymic affect Results & Data Results & Data ([facility]) Vital Signs (Past 12 Hours) Vital Signs Temp Pulse Pulse Resp BP BP Pulse Ox 04/08/21 07:42 100.2 F H 80 25 H 145/69 H 94 04/08/21 06:43 100.9 F H 82 28 H 168/90 H 95 04/08/21 06:27 82 28 H 164/83 H 95 04/08/21 06:12 76 27 H 176/78 H 93 04/08/21 05:57 80 24 180/77 H 93 04/08/21 05:46 102.4 F H 04/08/21 05:43 79 20 171/84 H 94 04/08/21 05:27 82 24 139/70 94 04/08/21 04:58 80 17 160/86 H 94 04/08/21 04:43 98.6 F 04/08/21 04:42 75 22 173/76 H 95 04/08/21 03:57 74 26 H 172/81 H 95 04/08/21 03:43 98.1 F 83 26 H 180/75 H 96 04/08/21 03:12 79 28 H 139/84 96 04/08/21 02:59 80 25 H 161/101 H 96 04/08/21 02:43 99.0 F 04/08/21 02:42 84 24 137/83 96 04/08/21 02:14 81 24 151/67 H 96 04/08/21 01:43 99.0 F 04/08/21 01:42 81 17 161/61 H 95 04/08/21 01:23 79 25 H 151/87 H 94 04/08/21 01:18 81 24 138/67 95 04/08/21 00:43 82 154/70 H 96 04/07/21 23:43 99.1 F 73 17 159/84 H 04/07/21 23:40 70 04/07/21 23:13 70 23 170/75 H 94 04/07/21 22:54 67 28 H 140/102 H 04/07/21 22:43 99.7 F H 66 20 141/92 H 04/07/21 22:23 64 26 H 173/99 H 04/07/21 22:18 64 28 H 178/93 H 04/07/21 22:13 65 24 162/85 H 04/07/21 21:58 65 21 175/77 H 94 04/07/21 21:48 66 23 169/84 H 04/07/21 21:43 62 24 184/90 H 04/07/21 21:33 64 19 150/95 H 96 04/07/21 21:25 63 22 155/87 H 96 04/07/21 21:18 66 24 170/79 H 96 04/07/21 21:13 99.0 F 64 24 183/86 H 04/07/21 21:04 64 19 165/89 H 94 04/07/21 20:58 67 26 H 184/103 H 94 04/07/21 20:48 69 26 H 179/70 H 94 04/07/21 20:43 67 19 188/83 H 04/07/21 20:34 79 26 H 148/85 H 04/07/21 20:28 69 24 135/84 96 04/07/21 20:13 69 28 H 166/82 H 94 Vital signs, labs and imaging reviewed. Coding Level of Care Code Critical Care 1st 30-74 mins Diagnoses Ischemic stroke I63.9 Received intravenous tissue plasminogen activator (tPA) in emergency department Z92.82 Hypertensive urgency I16.0 Carotid artery stenosis I65.29 Time Spent (min) 36
--- NOTE | 2021-04-08 08:15 | Magnetic Resonance Report ---
MRA OF THE INTRACRANIAL CIRCULATION WITHOUT CONTRAST CLINICAL HISTORY: worsening CVA s/s s/p TPA COMPARISON STUDY: CTA of the head and head CT April 07, 2021. TECHNIQUE: Utilizing a 1.5 Lana magnet and 3-D [id number] technique, unenhanced MRA of the intra cranial circulation was obtained. FINDINGS: The right M1, M2, A1 and A2 segments are patent. There is mild asymmetric decreased flow wi thin the intracranial portion of the left internal carotid artery. Note is made of occlusion of a dorothy vian branch of the left middle cerebral artery shown on axial image 63 of 208. Additional smaller bra nch occlusions are also noted with significant asymmetric diminished flow within the sylvian branches of the left middle cerebral artery when compared to the right. The right vertebral artery is diminut alyssa. Basilar artery is patent. Bilateral posterior cerebral arteries are patent. There is no intracra nial aneurysm. IMPRESSION: Occlusion of multiple sylvian branches of the left middle cerebral artery, as described above. Markedly diminished asymmetric flow within the posterior left MCA distribution. ACT 112: Negative or not required by law. Electronically signed by: Marcelino Rai M.D. 04/08/2021 8:13 AM
[2021-04-08] MEDS: SODIUM CHLORIDE 0.9% 1000ML 1,000 ML IV SCH ×2 (10:31→21:58)
[2021-04-08] MEDS ORDERED: GLUCOSE 40% GEL 15 GM TUBE PO PRN (10:45)
[2021-04-08] MEDS ORDERED: DEXTROSE 50% 50 ML SYRINGE IV PRN (10:45)
[2021-04-08] MEDS ORDERED: CARBOHYDRATES FOR HYPOGLYCEMIA PO PRN (10:45)
[2021-04-08] MEDS ORDERED: GLUCOSE 10 TABS/TUBE PO PRN (10:45)
[2021-04-08] MEDS ORDERED: GLUCAGON FOR INJ 1 MG VIAL IM PRN (10:45)
--- NOTE | 2021-04-08 10:57 | Electrocardiogram Report ---
Test Reason : Blood Pressure : / mmHG Vent. Rate : 066 BPM Atrial Rate : 066 BPM P-R Int : 200 ms QRS Dur : 112 ms QT Int : 412 ms P-R-T Axes : 025 -35 057 degrees QTc Int : 431 ms Sinus rhythm with occasional Premature ventricular complexes Left axis deviation Abnormal ECG When compared with ECG of 22-MAY-2019 10:42, No significant change was found Confirmed by Blade Echeverria ([id number]) on 04/08/2021 10:56:50 AM Referred By: Confirmed By:Blade Echeverria
--- NOTE | 2021-04-08 11:05 | Magnetic Resonance Report ---
NECK MRA HISTORY: worsening CVA s/s s/p TPA TECHNIQUE: [id number] and gadolinium-enhanced MRA of the neck was performed both before and after the intravenous administration of contrast. All measurements were calculated based on NASCET criteri a. COMPARISON STUDY: None. FINDINGS: Limited exam due to motion artifact. Right and left common carotid arteries appear to be patent. High-grade stenosis is seen within left bulb/proximal aspect of internal carotid artery on the left. Nonvisualization of the flow within distal aspect of V3 and within long segment of the V4 portion of the right vertebral artery. IMPRESSION: 1. High-grade stenosis within proximal aspect of the left internal carotid artery. 2. Nonvisualization of the flow/possible occlusion within distal aspect of V3 and within V4 segment of the right vertebral artery, acuity is unknown due to lack of prior imaging. Further evaluation wit h CT angiography of the neck is suggested. 3. Limited exam. ACT 112: Negative or not required by law. The above report was generated using voice recognition software. It may contain grammatical, syntax o r spelling errors. Electronically signed by: Cherelle Horvath DO 04/08/2021 11:04 AM
[2021-04-08] MEDS: INSULIN ASPART 100 UNITS/ML 3 ML PEN SC SCH ×3 (12:59→23:04)
--- NOTE | 2021-04-08 13:35 | Neurology Consultation ---
Date of Consultation April 08, 2021 Assessment & Plan (1) Left acute arterial ischemic stroke, MCA (middle cerebral artery): Yang Goodwin is a 80 yo man w/ PMH of HTN who p/t [facility] with acute onset of right sided weakness and aphasia. Symptom localization: left MCA/ICA territory Stroke mechanism: large vessel occlusion with component of vessel to vessel Stroke WorkUp: - CT head: shows loss of small-white differentiation in the left internal capsule and left insular region, no hemorrhage - CTA head/neck: notable for high-grade stenosis of the left ICA just proximal to the bifurcation with string sign present, hypoplastic right vertebral artery that terminates in the right PICA, dominant left vertebral artery, questionable left M2/M3 occlusion - MRI brain: shows an acute to early subacute infarct in the left MCA territory (affecting the inferior division more than superior division), moderate SVID, minimal generalized atrophy and no significant midline shift noted at that time - TTE: pending - Telemetry: pending - A1c: pending - FLP: pending - Troponin: negative Stroke Management: - Acute treatment: tPA - Continuous cardiac monitoring, will consider Holter monitor as outpatient if telemetry here unrevealing - Vitals, Neurochecks, NIHSS per unit routine - BP parameters: Post-tPA: SBP 185/110 s/p TPA, nicardipine gtt with goal to restart home anti-HTNsives in next 3-4 days - Complete ischemic stroke workup with TTE without bubble, A1c, fasting lipid panel - Consult speech, PT, OT for supportive management - Will peer counselor concerning stroke education, smoking cessation, healthy diet, physical activity, weight loss - Follow up with PCP for assistance with outpatient goals (BP <130/80, LDL <70, A1c <7) - Follow up in neurology clinic in 6-8 weeks with GAVIN Gutierrez, if he survives this initial period and is able to complete rehab Secondary Stroke Prevention: - Antiplatelet: ASA 300mg CT after 24 hr repeat CTH scan if stable - Anticoagulation: Not indicated at this time - Statin: Atorvastatin 80mg daily HTN: - BP parameters, as above - Hold home BP meds (lisinopril/HCTZ) for now in favor of post tPA SBP CAP FEN/GI: - Diet: NPO until cleared by Speech evaluation - Monitor lytes and replete PRN Glucose Control: - Sliding scale insulin and accuchecks per primary team to avoid hyperglycemia Thank you for this interesting consult. Plan of care was discussed with primary team. Please call with any questions. (2) Received intravenous tissue plasminogen activator (tPA) in emergency department: (3) Carotid artery stenosis: History of Present Illness Attending Physician: Yodit Blanton MD History of Present Illness Yang Goodwin is a 80 yo man w/ PMH of HTN who p/t [facility] with acute onset of right sided weakness and aphasia. ZIGZAGGER ~ 11am on 04/07/21. In the ED, he was initially 35.9 Celsius, BP 169/95, heart rate 69, respiratory 20, satting 95% room air. Labs notable for WBC 9.35, hemoglobin 16.2, platelets 206, INR 1, electrolytes within normal, creatinine 1.4, glucose 147, calcium/magnesium/phosphorus within normal, LFTs within normal, troponin negative, Covid negative. Imaging independently reviewed. CT head shows loss of small-white differentiation in the left internal capsule and left insular region, no hemorrhage. CTA head and neck notable for high-grade stenosis of the left ICA just proximal to the bifurcation with string sign present, hypoplastic right vertebral artery that terminates in the right PICA, dominant left vertebral artery, questionable left M2/M3 occlusion. MRI brain shows an acute to early subacute infarct in the left MCA territory (affecting the inferior division more than superior division), moderate SVID, minimal generalized atrophy and no significant midline shift noted at that time. He received tPA at 1:42pm after being started on a nicardipine gtt. On examination, he was minimally responsive to voice or noxious stimuli. present in room and discussed case with her. She reports that he would not want a feeding tube placed or extensive measures performed. Will continue conversation going forward given high likelihood of swelling over next few days. Stroke Workflow: Where patient arrived from: home CT ASPECT: 9 Time IV tpa is given: 1342 on 04/07/21 tPA bolus: 8.4 ml tPA dose: 76 ml If tpa not given, why not: n/a If delay >60min after hospital arrival, why: n/a Patient Features: Admission NIHSS: 34UN Admission Modified Steven Scale: 0-1 Time patient last seen well: ~11am on 04/07/21 Wake up stroke: No Intubation status: Not intubated Stroke Risk Factors: Hypertension: Y Hyperlipidemia: N Atrial Fib: N Tobacco: N Diabetes: N Taking NOAC or warfarin: N Allergies Allergy/AdvReac Type Severity Reaction Status Date / Time No Known Allergies Allergy Verified 04/07/21 14:55 Home Medications Medication Instructions Recorded Confirmed Type acetaminophen [Tylenol] 325 mg PO Q6H PRN 03/08/19 04/07/21 History lisinopril-hydrochlorothiazide 1 tab PO QAM 03/08/19 04/07/21 History Patient History Medical History Asthma Carotid artery stenosis Gout Hypertension Hypertensive urgency Ischemic stroke Received intravenous tissue plasminogen activator (tPA) in emergency department Surgical History History of foot surgery Social History Smoking Status: Never smoker Hx Alcohol Use: No Hx Substance Use: No Preferred Language: Mongolian Communication Ability: Unable Space Buyer Required: No Beliefs That Will Affect Care: None marital status: Current Living Situation: Spouse current occupational status: retired Other Information That Helps Us Care for You: No Feels Safe at Home: Yes Safety Concerns: Feels Safe At This Time Review of Systems Review of Systems: 14 point review of systems completed and negative except as in HPI. Exam (Neuro) Physical Exam: General Exam: GEN: NAD, lying down in examination bed. HEENT: No conjunctival injection, no rhinorrhea. CV: RRR on monitor, no significant edema. PULM: Nonlabored respirations on room air. Neuro Exam: MS: lethargic, requires near constant stimulation to keep eyes open. Global aphasia, does not speak or follow commands. CN: Left gaze preference, unable to overcome with dolls eyes. Right visual field cut suspected. Unable to visualize fundi on fundoscopic exam. PERRLA OU. Right FP. Tongue midline. MOTOR: Normal bulk, flaccid tone in RUE/RLE. No antigravity in RUE/RLE, LUE antigravity without drift, LLE antigravity with drift to bed REFLEXES: 1+ at biceps, triceps, brachioradialis, trace patella, and absent Achilles bilaterally. Flexor plantar responses bilaterally. SENSORY: Withdraws to noxious stimuli in LUE/LLE, no withdrawal or grimace to noxious stimuli in RUE/RLE. COORDINATION: unable to assess 2/2 mental status GAIT: Deferred due to physical status. NIH STROKE SCALE 1A. Level of Consciousness (0-3) = 2 1B. LOC Questions (0-2) = 2 1C. LOC Commands (0-2) = 2 2. Best Horizontal Gaze (0-2) = 2 3. Visual Conrad (0-3) = 2 4. Facial Palsy (0-3) = 3 5. Motor Arm Right (0-4) = 4 Left (0-4) = 0 6. Motor Leg Right (0-4) = 4 Left (0-4) = 2 7. Limb Ataxia (0-2) = UN 8. Sensory (0-2) = 2 9. Best Language (0-3) = 3 10. Dysarthria (0-2) = 2 11. Extinction and Inattention (0-2) = 0 NIHSS TOTAL = 34UN Results & Data ([facility]) Vital Signs (Past 12 Hours) Vital Signs Temp Pulse Pulse Resp BP BP Pulse Ox 04/08/21 09:53 37 C 60 25 H 115/81 94 04/08/21 08:52 37.0 C 60 21 152/70 H 94 04/08/21 08:00 82 04/08/21 07:42 37.9 C H 80 25 H 145/69 H 94 04/08/21 06:43 38.3 C H 82 28 H 168/90 H 95 04/08/21 06:27 82 28 H 164/83 H 95 04/08/21 06:12 76 27 H 176/78 H 93 04/08/21 05:57 80 24 180/77 H 93 04/08/21 05:46 39.1 C H 04/08/21 05:43 79 20 171/84 H 94 04/08/21 05:27 82 24 139/70 94 04/08/21 04:58 80 17 160/86 H 94 04/08/21 04:43 37.0 C 04/08/21 04:42 75 22 173/76 H 95 04/08/21 03:57 74 26 H 172/81 H 95 04/08/21 03:43 36.7 C 83 26 H 180/75 H 96 04/08/21 03:12 79 28 H 139/84 96 04/08/21 02:59 80 25 H 161/101 H 96 04/08/21 02:43 37.2 C 04/08/21 02:42 84 24 137/83 96 04/08/21 02:14 81 24 151/67 H 96 04/08/21 01:43 37.2 C 04/08/21 01:42 81 17 161/61 H 95 PG Care Time/CCT Total # of Minutes Spent Total Time Spent with Patient: Total time spent is greater than 50% in coordina tion of care (as documented) at patient's floor/unit and/or counseling patient: 60 Coding Level of Care Code 66094 Initial Inpt Care Lvl 3 Diagnoses Left acute arterial ischemic stroke, MCA (middle cerebral artery) I63.512 Received intravenous tissue plasminogen activator (tPA) in emergency department Z92.82 Carotid artery stenosis I65.29
--- NOTE | 2021-04-08 13:43 | CT Scan Report ---
CT head/brain wo con CLINICAL HISTORY: Stroke. Post tPA head CT. COMPARISON STUDY: MRI dated 04/08/2021 TECHNIQUE: Axial CT of the brain is performed from the vertex to the skull base. IV contrast was not administered for this examination. A dose lowering technique was utilized adhering to the principles of ALARA. CT DOSE: 1259.45 mGycm FINDINGS: Now evident is a large left posterior middle cerebral artery distribution infarct with involvement of the basal ganglia. There is no evidence for hemorrhagic conversion. There are patchy white matter hypodensities likely on a small vessel basis. There are old bilateral l acunar infarcts. There is no evidence of pathologic ventricular dilatation. There is no evidence of acute sinusitis IMPRESSION: 1. Large left left hemispheric subacute infarct in the left posterior middle cerebral artery distribu tion. There is also involvement of the left basal ganglia. 2. No evidence of acute hemorrhage. ACT 112: Negative or not required by law. Electronically signed by: German Ceballos M.D. 04/08/2021 1:42 PM
--- NOTE | 2021-04-08 15:37 | XCELERA ---
[id number]
--- NOTE | 2021-04-08 16:36 | Palliative Care Consultation ---
Date of Consultation April 08, 2021 Assessment & Plan (1) Palliative care encounter: I met with his , Constanza, at bedside. She is his second and both have children from prior marriages. She reports that "Venu" has never talked about what he would want for his care if he were seriously ill. She is somewhat overwhelmed and keeps saying "I hope that he can get better". We talked about extensive damage from CVA and risk of herniation and . She has spoken with Venu's son who told her that if he wasn't going to get better, we should not keep him alive. She notes that as a very active and independent person, Venu would not be happy if he were dependent for care or needed to live in SNF. At this time she requests that he be DNR/DNI in the event of cardiopulmonary arrest. She would like to continue current therapy for the time being to get a better sense of his overall prognosis. She has strong support network and spiritual support with her circle beveler at bedside. Palliative care will follow. (2) Left acute arterial ischemic stroke, MCA (middle cerebral artery): History of Present Illness Reason for Consultation: goals of care Requesting Physician: Dr. Aldana Attending Physician: Yodit Blanton MD History of Present Illness 80 yo gentleman without significant medical history who had been very active prior to admission. On the day of admission, [facility] when she noticed that he was drooling and having difficulty putting on his seatbelt. She brought him to the emergency room and he was treated with tpa for a left MCA ischemic CVA. He was noted to have high grade left internal carotid stenosis on MRA. Followup imaging shows extensive infarct in left hemisphere with no significant shift. He is obtunded and unable to provide any history or review of systems. His reports that he had a headache earlier in the day but was otherwise healthy and very active. Allergies Allergy/AdvReac Type Severity Reaction Status Date / Time No Known Allergies Allergy Verified 04/07/21 14:55 Home Medications Medication Instructions Recorded Confirmed Type acetaminophen [Tylenol] 325 mg PO Q6H PRN 03/08/19 04/07/21 History lisinopril-hydrochlorothiazide 1 tab PO QAM 03/08/19 04/07/21 History Patient History Medical History Asthma Carotid artery stenosis Gout Hypertension Hypertensive urgency Ischemic stroke Received intravenous tissue plasminogen activator (tPA) in emergency department Surgical History History of foot surgery Social History Smoking Status: Never smoker Hx Alcohol Use: No Hx Substance Use: No Preferred Language: Ukrainian Communication Ability: Unable International First Officer Required: No Beliefs That Will Affect Care: None marital status: Current Living Situation: Spouse current occupational status: retired Other Information That Helps Us Care for You: No Feels Safe at Home: Yes Safety Concerns: Feels Safe At This Time Review of Systems Review of Systems: Unobtainable due to reduced consciousness [place] Symptom Assessment Scale PainAD 0/3 Dyspnea by observation 0 Palliative Performance Score 10% Physical Exam Constitutional: no acute distress Respiratory: no labored breathing tachypnea Cardiovascular: Rate/Rhythm: regular rate and regular rhythm Gastrointestinal (Abdomen): Inspection/Auscultation: abdomen not distended Musculoskeletal: Extremities: extremities normal to inspection Neurologic: + obtunded Results & Data ([place]) Vital Signs (Past 12 Hours) Vital Signs Temp Pulse Pulse Resp BP BP Pulse Ox 04/08/21 12:53 100.0 F H 72 25 H 150/59 H 98 04/08/21 11:53 99.5 F 65 25 H 146/59 H 95 04/08/21 10:53 99.0 F 68 26 H 150/102 H 94 04/08/21 09:53 98.6 F 60 25 H 115/81 94 04/08/21 08:52 98.6 F 60 21 152/70 H 94 04/08/21 08:00 82 04/08/21 07:42 100.2 F H 80 25 H 145/69 H 94 04/08/21 06:43 100.9 F H 82 28 H 168/90 H 95 04/08/21 06:27 82 28 H 164/83 H 95 04/08/21 06:12 76 27 H 176/78 H 93 04/08/21 05:57 80 24 180/77 H 93 04/08/21 05:46 102.4 F H 04/08/21 05:43 79 20 171/84 H 94 04/08/21 05:27 82 24 139/70 94 04/08/21 04:58 80 17 160/86 H 94 04/08/21 04:43 98.6 F 04/08/21 04:42 75 22 173/76 H 95 PG Care Time/CCT Total # of Minutes Spent Total Time Spent with Patient: Total time spent is greater than 50% in coordination of care (as documented) at patient's floor/unit and/or counseling patient: total time spent 60 minutes with more than 50% of time spent on goals of care, family education and support. Coding Level of Care Code 92418 Inpt Consult Level 3 Diagnoses Palliative care encounter Z51.5 Left acute arterial ischemic stroke, MCA (middle cerebral artery) I63.512
--- NOTE | 2021-04-08 18:28 | Hospitalist Progress Note ---
Date of Service April 08, 2021 Assessment & Plan (1) Ischemic stroke: Presented with acute onset of dysarthria and right-sided weakness. S/P tPA in the ER after telestroke consultation with Rekha Overnight on the first night of admission, he had significant worsening of his symptoms after some initial improvement as per notation from admitting physician Rekha was consulted again and repeat imaging was performed which is extensive stroke in the MCA territory throughout left temporoparietal lobes, left basal ganglia into the reynoso radiata and frontal and occipital and insular cortex. CT angiogram the head and neck show high-grade stenosis of the left ICA which was again confirmed on repeat MRA in the middle the night Echocardiogram with negative bubble study, otherwise with moderate LVH, mild dynamic left ventricular outflow tract obstruction, EF 70%, RVSP elevated at 40- 50 mmHg Telemetry with sinus rhythm Hemoglobin A1c in the prediabetes range at 6.4%, LDL mildly elevated in the 140s Repeat CT head 24 hours status post TPA without hemorrhage Continue blood pressure parameters SBP less than 185, DBP less than 110- nicardipine drip as needed Continues on IV fluids PT/OT/speech therapy-unable to complete assessments as he is obtunded Palliative care consultation appreciated We will start NV aspirin in the morning Start statin if able to take p.o. but doubtful He is at very high risk for hemorrhagic conversion and/or brain edema and herniation Prognosis very poor (2) Received intravenous tissue plasminogen activator (tPA) in emergency department: as above. (3) Hypertensive urgency: BPs elevated on admission, was started on nicardpipine gtt now improved (4) Carotid artery stenosis: High-grade stenosis of the LICA With massive stroke as above Not a candidate for urgent intervention at this time due to TPA If survives, will need carotid endarterectomy (5) Hypertension: Holding home lisinopril/HCTZ Nicardipine as needed (6) Prediabetes: Hemoglobin A1c elevated at 6.4% the prediabetic range Insulin and glucose checks as per ICU protocol (7) Fever: Most likely secondary to massive stroke Follow Tylenol as needed (8) Gout: No acute issues No home meds (9) DVT prophylaxis: None at this time due to TPA Disposition-continued stay in ICU Guarded prognosis Palliative care consultation appreciated-family changed status to DNR/DNI today Admission and Anticipated Discharge Date Admission Date: April 07, 2021 Subjective Patient remains obtunded. Seen by palliative care today. Case was discussed with neurology. He had extensive strokes found on MRI and had significant worsening overnight with right-sided flaccid paralysis. Review of Systems Review of Systems: Unobtainable due to cognitive status and Unobtainable due to reduced consciousness Physical Exam Constitutional: WD/WN, vitals as above Eyes: PERRL, conjunctivae normal, anicteric sclerae ENMT: external ear and nose normal, oropharynx normal Neck: trachea midline, no thyromegaly Respiratory: + tachypneic Auscultation: no crackles, no rhonchi and no wheezes Cardiovascular: RRR, no murmur, no edema Chest (Breasts): Chest: normal inspection of chest Gastrointestinal (Abdomen): normal bowel sounds, soft, nontender, no hepatosplenomegaly Musculoskeletal: Extremities: extremities normal to inspection; no cyanosis and no clubbing Skin: no rashes, warm and dry Neurologic: + focal motor deficit (Spontaneously moves left side but not right, no withdrawal to pain on right) and + obtunded; + not awake Lymphatic: no lymphedema Results & Data Results & Data ([facility]) Vital Signs (Past 12 Hours) Vital Signs Temp Pulse Pulse Resp BP BP Pulse Ox 04/08/21 17:43 37.4 C 72 25 H 149/79 H 95 04/08/21 17:30 83 25 H 95 04/08/21 17:29 82 29 H 129/78 95 04/08/21 17:13 81 31 H 161/59 H 95 04/08/21 17:00 76 29 H 94 04/08/21 16:58 77 30 H 149/60 H 95 04/08/21 16:44 80 29 H 95 04/08/21 16:30 82 30 H 95 04/08/21 16:28 79 29 H 152/83 H 95 04/08/21 16:18 81 32 H 160/65 H 95 04/08/21 16:14 77 29 H 94 04/08/21 16:00 83 27 H 95 04/08/21 15:58 79 28 H 132/106 H 95 04/08/21 15:43 83 28 H 122/66 95 04/08/21 15:30 73 27 H 94 04/08/21 15:28 74 28 H 157/63 H 95 04/08/21 15:13 66 28 H 138/71 94 04/08/21 15:00 75 22 95 04/08/21 14:58 79 26 H 163/92 H 95 04/08/21 14:43 80 25 H 164/73 H 92 04/08/21 14:30 79 21 95 04/08/21 14:29 76 28 H 158/67 H 95 04/08/21 14:13 69 29 H 158/73 H 94 04/08/21 14:00 37.6 C H 74 26 H 95 04/08/21 13:58 73 28 H 163/66 H 94 04/08/21 13:43 73 29 H 158/74 H 95 04/08/21 13:40 71 27 H 95 04/08/21 13:12 77 28 H 169/72 H 93 04/08/21 13:00 76 30 H 94 04/08/21 12:53 37.8 C H 72 25 H 150/59 H 98 04/08/21 11:53 37.5 C 65 25 H 146/59 H 95 04/08/21 10:53 37.2 C 68 26 H 150/102 H 94 04/08/21 09:53 37 C 60 25 H 115/81 94 04/08/21 08:52 37.0 C 60 21 152/70 H 94 04/08/21 08:00 82 04/08/21 07:42 37.9 C H 80 25 H 145/69 H 94 04/08/21 06:43 38.3 C H 82 28 H 168/90 H 95 Laboratory Results Labs reviewed Diagnostic Findings Head CT 04/08/21 13:00 CT head/brain wo con CLINICAL HISTORY: Stroke. Post tPA head CT. COMPARISON STUDY: MRI dated 04/08/2021 TECHNIQUE: Axial CT of the brain is performed from the vertex to the skull base. IV contrast was not administered for this examination. A dose lowering technique was utilized adhering to the principles of ALARA. CT DOSE: 1259.45 mGycm FINDINGS: Now evident is a large left posterior middle cerebral artery distribution infa rct with involvement of the basal ganglia. There is no evidence for hemorrhagic conversion. There are patchy white matter hypodensities likely on a small vessel basis. There are old bilateral lacunar infarcts. There is no evidence of pathologic ventricular dilatation. There is no evidence of acute sinusitis IMPRESSION: 1. Large left left hemispheric subacute infarct in the left posterior middle cerebral artery distribution. There is also involvement of the left basal ganglia. 2. No evidence of acute hemorrhage. ACT 112: Negative or not required by law. Electronically signed by: German Ceballos M.D. 04/08/2021 1:42 PM Head MRA 04/08/21 21:09 MRA OF THE INTRACRANIAL CIRCULATION WITHOUT CONTRAST CLINICAL HISTORY: worsening CVA s/s s/p TPA COMPARISON STUDY: CTA of the head and head CT April 07, 2021. TECHNIQUE: Utilizing a 1.5 Lana magnet and 3-D [id number] technique, unenhanced MRA of the intracranial circulation was obtained. FINDINGS: The right M1, M2, A1 and A2 segments are patent. There is mild asymmetric decreased flow within the intracranial portion of the left internal carotid artery. Note is made of occlusion of a sylvian branch of the left middle cerebral artery shown on axial image 63 of 208. Additional smaller branch occlusions are also noted with significant asymmetric diminished flow within the sylvian branches of the left middle cerebral artery when compared to the right. The right vertebral artery is diminutive. Basilar artery is patent. Bilateral posterior cerebral arteries are patent. There is no intracranial aneurysm. IMPRESSION: Occlusion of multiple sylvian branches of the left middle cerebral artery, as described above. Markedly diminished asymmetric flow within the posterior left MCA distribution. ACT 112: Negative or not required by law. Electronically signed by: Marcelino Rai M.D. 04/08/2021 8:13 AM Neck MRA 04/08/21 21:09 NECK MRA HISTORY: worsening CVA s/s s/p TPA TECHNIQUE: [id number] and gadolinium-enhanced MRA of the neck was performed both before and after the intravenous administration of contrast. All measurements were calculated based on NASCET criteria. COMPARISON STUDY: None. FINDINGS: Limited exam due to motion artifact. Right and left common carotid arteries appear to be patent. High-grade stenosis is seen within left bulb/proximal aspect of internal carotid artery on the left. Nonvisualization of the flow within distal aspect of V3 and within long segment of the V4 portion of the right vertebral artery. IMPRESSION: 1. High-grade stenosis within proximal aspect of the left internal carotid artery. 2. Nonvisualization of the flow/possible occlusion within distal aspect of V3 and within V4 segment of the right vertebral artery, acuity is unknown due to lack of prior imaging. Further evaluation with CT angiography of the neck is suggested. 3. Limited exam. ACT 112: Negative or not required by law. The above report was generated using voice recognition software. It may contain grammatical, syntax or spelling errors. Electronically signed by: Cherelle Horvath DO 04/08/2021 11:04 AM Brain MRI 04/08/21 21:12 MRI OF THE BRAIN WITHOUT CONTRAST CLINICAL HISTORY: worsening CVA s/s s/p TPA COMPARISON STUDY: Head CT and CTA of the head April 07, 2021. TECHNIQUE: Utilizing a 1.5 Lana magnet and dedicated coil, multiplanar, multiecho imaging of the brain was performed without IV contrast. FINDINGS: Note is made of extensive restricted diffusion involving the left parietal, occipital and posterior left temporal lobes. This extends into the insular cortex. Several foci of acute infarction also noted within the left basal ganglia. There is no evidence for acute hemorrhage. There is minimal mass effect with mild sulcal effacement. Ventricular system is unremarkable. Basal cisterns are patent. White matter T2 hyperintense foci suggest small vessel disease. There are no extra axial collections. Calvarial signal is normal. IMPRESSION: Extensive acute infarcts within the left cerebral hemisphere, predominantly within the posterior left middle cerebral artery distribution as well as involvement of the left basal ganglia. Minimal mass effect with sulcal effacement. No acute intracranial hemorrhage. ACT 112: Negative or not required by law. Electronically signed by: Marcelino Rai M.D. 04/08/2021 7:56 AM PG Care Time/CCT Total # of Minutes Spent Total Time Spent with Patient: Total time spent is greater than 50% in coordination of care (as documented) at patient's floor/unit and/or counseling patient: Coding Level of Care Code 73150 Subseq Hosp Care Lvl 3 Diagnoses Ischemic stroke I63.9 Received intravenous tissue plasminogen activator (tPA) in emergency department Z92.82 Hypertensive urgency I16.0 Carotid artery stenosis I65.29 Hypertension I10 Hypertension type: unspecified Prediabetes R73.03 Fever R50.9 Gout M10.9 DVT prophylaxis Z29.9 (1) Hypertension Hypertension type: unspecified Qualified Code(s): I10 - Essential (primary) hypertension
[2021-04-08 19:25] LABS: Hematocrit (blood only) 45.5 % (42-52); Hemoglobin 16.2 g/dL (14.0-18.0); Immature Granulocytes # (auto) 0.03 K/uL (0.00-0.02); Immature Granulocytes % (auto) 0.2 %; Lymphocytes # (auto) 1.25 K/uL (1.2-3.4); Lymphocytes % (auto) 8.5 %; Mean Corpuscular Hemoglobin 28.5 pg (25-34); Mean Corpuscular Hgb Conc 35.6 g/dL (32-36); Mean Corpuscular Volume 80.1 fL (80-100); Mean Platelet Volume 10.8 fL (7.4-10.4); Monocytes # (auto) 0.92 K/uL (0.11-0.59); Monocytes % (auto) 6.2 %; Neutrophils # (auto) 12.53 K/uL (1.4-6.5); Neutrophils % (auto) 85.1 %; Platelet Count 159 K/uL (130-400); RDW Coefficient of Variation 14.6 % (11.5-14.5); RDW Standard Deviation 42.5 fL (36.4-46.3); Red Blood Count 5.68 M/uL (4.7-6.1); White Blood Count 14.73 K/uL (4.8-10.8)
[2021-04-08 19:45] LABS: BUN Creatinine Ratio 15.2 (10-20); Calcium 8.8 mg/dl (8.5-10.1); Creatinine Clr Calc Pharmacy 50.6 ml/min; Est GFR (African American) 61.3 ml/min; Est GFR (Non-African American) 52.9 ml/min; Potassium 3.7 mmol/L (3.5-5.1)
[2021-04-09] MEDS: niCARdipine 25 MG in SODIUM CHLORIDE 0.9% 240 ML IV SCH (04:30)
[2021-04-09 05:10] LABS: Hematocrit (blood only) 44.1 % (42-52); Hemoglobin 14.7 g/dL (14.0-18.0); Immature Granulocytes # (auto) 0.03 K/uL (0.00-0.02); Immature Granulocytes % (auto) 0.2 %; Lymphocytes # (auto) 1.87 K/uL (1.2-3.4); Lymphocytes % (auto) 12.8 %; Mean Corpuscular Hemoglobin 26.6 pg (25-34); Mean Corpuscular Hgb Conc 33.3 g/dL (32-36); Mean Corpuscular Volume 79.9 fL (80-100); Mean Platelet Volume 10.9 fL (7.4-10.4); Monocytes # (auto) 1.34 K/uL (0.11-0.59); Monocytes % (auto) 9.2 %; Neutrophils # (auto) 11.36 K/uL (1.4-6.5); Neutrophils % (auto) 77.8 %; Platelet Count 181 K/uL (130-400); RDW Coefficient of Variation 14.7 % (11.5-14.5); RDW Standard Deviation 42.8 fL (36.4-46.3); Red Blood Count 5.52 M/uL (4.7-6.1)
[2021-04-09 05:43] LABS: BUN Creatinine Ratio 17.8 (10-20); Calcium 7.9 mg/dl (8.5-10.1); Est GFR (African American) 57.5 ml/min; Est GFR (Non-African American) 49.6 ml/min; Magnesium 2.1 mg/dl (1.8-2.4); Potassium 3.6 mmol/L (3.5-5.1)
[2021-04-09 05:49] LABS: Phosphorus 3.4 mg/dl (2.5-4.9)
[2021-04-09] MEDS: INSULIN ASPART 100 UNITS/ML 3 ML PEN SC SCH ×3 (06:17→18:18)
[2021-04-09 06:21] LABS: Estimated Average Glucose 137 mg/dl; Hemoglobin A1C 6.4 % (4.5-5.6)
[2021-04-09] MEDS ORDERED: ACETAMINOPHEN 1,000 MG/100 ML VIAL IV PRN (08:06)
--- NOTE | 2021-04-09 08:06 | Critical Care Progress Note ---
Date of Service April 09, 2021 Assessment & Plan (1) Ischemic stroke: Patient was discussed in multidisciplinary rounds. Neurologic: He received TPA this admission for an ischemic stroke. Appears to have had a large left MCA stroke. Echo study performed yesterday. Results reviewed. No evidence of intra-arterial shunt. 24-hour repeat CT head completed yesterday at 1:30 PM did not demonstrate any evidence of hemorrhage. Large left hemispheric subacute infarct was noted. He is at risk for herniation. Continue to maintain systolic blood pressures of 140-180. He has evidence of neurogenic fevers. We will attempt to prevent fevers with the use of Tylenol and cooling blanket. Pulmonary: No issues presently. Mentation is poor, however, he is maintaining his airway at this time. Cardiovascular: Maintain systolic blood pressure less than 185 and diastolic blood pressure less than 110. Gastrointestinal: Strict n.p.o. due to altered mental status. Will need to discuss placement of NG tube with family to initiate tube feeds and give medications. Palliative care is involved. Renal: No significant issues at present. Sodium chloride running at 80 cc an hour. Infectious disease: Patient is febrile likely secondary to neurogenic fever. Blood cultures, procalcitonin and urinalysis have been ordered. Ceftriaxone started empirically. Hematologic: No issues at present Endocrine: [place] hypoglycemia protocol if blood glucose greater than 180. Monitor for hypoglycemia. VTE prophylaxis: Lovenox for VT prophylaxis CODE STATUS: DNR/DNI Palliative care is involved in assisting in goals of care discussion. If the patient is likely stable for transfer to the floor with continued telemetry monitoring. (2) Received intravenous tissue plasminogen activator (tPA) in emergency department: (3) Hypertensive urgency: (4) Carotid artery stenosis: (5) Acute ischemic left MCA stroke: (6) Acute encephalopathy: Admission and Anticipated Discharge Date Admission Date: April 07, 2021 Subjective Patient seen and examined this morning. Patient unable to give any review of systems history given his altered mental status. Patient is currently on nicard ipine. He is febrile to 101.3 overnight. He received several doses of Tylenol. Review of Systems Review of Systems: Unobtainable due to endotracheal tube and Unobtainable due to reduced consciousness Physical Exam Constitutional: + acute distress Eyes: Left gaze preference. Respiratory: Tachypneic. Rhonchorous bilaterally. Cardiovascular: RRR, no murmur, no edema Gastrointestinal (Abdomen): normal bowel sounds, soft, nontender, no hepatosplenomegaly Skin: no rashes, warm and dry Neurologic: Flaccid limbs on the left. Left gaze preference. Nonresponsive to commands. Psychiatric: A+Ox3, euthymic affect Results & Data Results & Data ([facility]) Vital Signs (Past 12 Hours) Vital Signs Temp Pulse Resp BP Pulse Ox 04/09/21 06:30 68 26 H 139/56 L 92 04/09/21 06:00 60 27 H 126/56 L 93 04/09/21 05:30 64 26 H 131/59 L 93 04/09/21 05:00 67 26 H 137/54 L 95 04/09/21 04:30 74 25 H 92 04/09/21 04:29 75 27 H 98/74 L 92 04/09/21 04:00 101.3 F H 77 28 H 144/73 H 94 04/09/21 03:30 55 L 27 H 142/63 H 92 04/09/21 03:00 62 29 H 140/60 94 04/09/21 02:30 69 28 H 128/60 96 04/09/21 02:00 70 26 H 137/75 93 04/09/21 01:30 77 24 145/62 H 93 04/09/21 01:00 73 28 H 131/78 93 04/09/21 00:30 78 30 H 121/43 L 94 04/09/21 00:00 101.5 F H 83 26 H 136/67 95 04/08/21 23:30 62 26 H 130/65 96 04/08/21 23:00 72 27 H 153/65 H 95 04/08/21 22:30 73 28 H 134/67 96 04/08/21 22:00 66 27 H 131/73 94 04/08/21 21:30 78 29 H 139/63 96 04/08/21 21:00 75 29 H 156/60 H 95 04/08/21 20:30 69 28 H 141/63 H 95 vital signs, labs and imaging reviewed. Coding Level of Care Code 72908 Subseq Hosp Care Lvl 3 Diagnoses Ischemic stroke I63.9 Received intravenous tissue plasminogen activator (tPA) in emergency department Z92.82 Hypertensive urgency I16.0 Carotid artery stenosis I65.29 Acute ischemic left MCA stroke I63.512 Acute encephalopathy G93.40
[2021-04-09] MEDS: ASPIRIN 300 MG SUPP PR SCH (08:29)
[2021-04-09] MEDS: cefTRIAXone SODIUM 2,000 MG in DEXTROSE 5% 50 ML IV SCH (08:38)
[2021-04-09 09:03] LABS: Appearance Urine Cloudy (Clear); Bacteria Urine Automated Negative (Negative); Bilirubin Urine Negative (Negative); Blood Urine 3+ (Negative); Color Urine Orange; Glucose Urine UA Negative (Negative); Ketones Urine Negative (Negative); Leukocyte Esterase Urine 1+ (Negative); Nitrite Urine Negative (Negative); Protein Urine Trace (Negative); Specific Gravity Urine 1.022 (1.000-1.030); Urobilinogen Urine Negative (Negative)
[2021-04-09] MEDS: ENOXAPARIN INJ 40 MG/0.4 ML SYR SQ SCH (09:09)
[2021-04-09] MEDS: POTASSIUM CHLORIDE / WTR 10 MEQ/100 ML PLCT IV SCH ×2 (09:18→11:13)
--- NOTE | 2021-04-09 13:31 | Neurology Progress Note ---
Date of Service April 09, 2021 Assessment & Plan (1) Left acute arterial ischemic stroke, MCA (middle cerebral artery): Yang Goodwin is a 80 yo man w/ PMH of HTN who p/t [facility] [place] with acute onset of right sided weakness and aphasia. Symptom localization: left MCA/ICA territory Stroke mechanism: large vessel occlusion with component of vessel to vessel Stroke WorkUp: - CT head: shows loss of small-white differentiation in the left internal capsule and left insular region, no hemorrhage. Repeat CTH stable, no hemorrhagic conversion, expected evolution of L MCA stroke. - CTA head/neck: notable for high-grade stenosis of the left ICA just proximal to the bifurcation with string sign present, hypoplastic right vertebral artery that terminates in the right PICA, dominant left vertebral artery, questionable left M2/M3 occlusion - MRI brain: shows an acute to early subacute infarct in the left MCA territory (affecting the inferior division more than superior division), moderate SVID, minimal generalized atrophy and no significant midline shift noted at that time - TTE: EF >70%, hyperdynamic LV, no interatrial shunt, moderate LVH, grade I daistolic dysfunction, mild LV outflow tract obstruction, mild AR - Telemetry: pending - A1c: 6.4 - FLP: 143 - Troponin: negative Stroke Management: - Continuous cardiac monitoring, 30 day event monitor as outpatient if telemetry here unrevealing - Vitals, Neurochecks, NIHSS per unit routine - BP parameters: restart home anti-HTNsives with goal normotension in next 2-3 days - Consult speech, PT, OT for supportive management - Will health counselor concerning stroke education, smoking cessation, healthy diet, physical activity, weight loss - Follow up with PCP for assistance with outpatient goals (BP <130/80, LDL <70, A1c <7) - Follow up in neurology clinic in 6-8 weeks with GAVIN Gutierrez, if he survives this initial period and go to rehab - Treat fevers with scheduled tylenol, infectious workup per primary team Secondary Stroke Prevention: - Antiplatelet: ASA 300mg [place], transition to PO when PO access obtained - Anticoagulation: Not indicated at this time - Statin: Atorvastatin 80mg daily HTN: - BP parameters, as above - Restart home BP meds (lisinopril/HCTZ) FEN/GI: - Diet: NPO until cleared by Speech evaluation. Would place oral access if in line with patient/family goals - Monitor lytes and replete PRN Glucose Control: - Sliding scale insulin and accuchecks per primary team to avoid hyperglycemia Thank you for this interesting consult. Plan of care was discussed with primary team. Please call with any questions. (2) Received intravenous tissue plasminogen activator (tPA) in emergency department: (3) Carotid artery stenosis: Admission and Anticipated Discharge Date Admission Date: April 07, 2021 Subjective NAEs overnight. Yang was more alert this afternoon, opened his eyes to voice and would intermittently follow commands on the left side. repeat CTH shows expected evolution of the left MCA territory stroke (involving mainly the posterior portion of the MCA territory and left basal ganglia) with no significant edema or midline shift noted. Review of Systems Review of Systems: Unobtainable due to cognitive status and Unobtainable due to reduced consciousness Results & Data ([facility]) Vital Signs (Past 12 Hours) Vital Signs Temp Pulse Resp BP Pulse Ox 04/09/21 12:28 63 24 146/73 H 96 04/09/21 12:14 63 29 H 150/84 H 96 04/09/21 12:00 37.3 C 95 04/09/21 11:00 54 L 27 H 97 04/09/21 10:00 52 L 27 H 97 04/09/21 09:00 56 L 27 H 95 04/09/21 08:58 58 L 27 H 119/57 L 95 04/09/21 08:36 62 27 H 146/66 H 96 04/09/21 08:35 61 26 H 145/70 H 96 04/09/21 08:05 37.1 C 04/09/21 08:00 60 25 H 92 04/09/21 07:00 72 27 H 94 04/09/21 06:58 72 28 H 136/64 94 04/09/21 06:30 68 26 H 139/56 L 92 04/09/21 06:00 60 27 H 126/56 L 93 04/09/21 05:30 64 26 H 131/59 L 93 04/09/21 05:00 67 26 H 137/54 L 95 04/09/21 04:30 74 25 H 92 04/09/21 04:29 75 27 H 98/74 L 92 04/09/21 04:00 38.5 C H 77 28 H 144/73 H 94 04/09/21 03:30 55 L 27 H 142/63 H 92 04/09/21 03:00 62 29 H 140/60 94 04/09/21 02:30 69 28 H 128/60 96 04/09/21 02:00 70 26 H 137/75 93 04/09/21 01:30 77 24 145/62 H 93 Exam (Neuro) Physical Exam: General Exam: GEN: NAD, lying down in examination bed. HEENT: No conjunctival injection, no rhinorrhea. CV: RRR on monitor, no significant edema. PULM: Nonlabored respirations on room air. Neuro Exam: MS: Opens eyes to voice and tracks examiner in the left visual field. Global aphasia, does not speak, intermittently follow commands with LUE/LLE. CN: Left gaze preference, unable to overcome with dolls eyes. Right visual field cut. Right FP. Tongue midline. MOTOR: Normal bulk, flaccid tone in RUE/RLE. No antigravity in RUE/RLE, LUE antigravity without drift, LLE antigravity with drift to bed REFLEXES: 1+ at biceps, triceps, brachioradialis, trace patella, and absent Achilles bilaterally. Flexor plantar responses bilaterally. SENSORY: Withdraws to noxious stimuli in LUE/LLE, no withdrawal or grimace to noxious stimuli in RUE/RLE. COORDINATION: unable to assess 2/2 mental status GAIT: Deferred due to physical status. NIH STROKE SCALE 1A. Level of Consciousness (0-3) = 1 1B. LOC Questions (0-2) = 2 1C. LOC Commands (0-2) = 1 2. Best Horizontal Gaze (0-2) = 2 3. Visual Conrad (0-3) = 2 4. Facial Palsy (0-3) = 3 5. Motor Arm Right (0-4) = 4 Left (0-4) = 0 6. Motor Leg Right (0-4) = 4 Left (0-4) = 1 7. Limb Ataxia (0-2) = UN 8. Sensory (0-2) = 2 9. Best Language (0-3) = 3 10. Dysarthria (0-2) = 2 11. Extinction and Inattention (0-2) = 0 NIHSS TOTAL = 22UN PG Care Time/CCT Total # of Minutes Spent Total Time Spent with Patient: Total time spent is greater than 50% in coordination of care (as documented) at patient's floor/unit and/or counseling patient: Coding Level of Care Code 60242 Subseq Hosp Care Lvl 3 Diagnoses Left acute arterial ischemic stroke, MCA (middle cerebral artery) I63.512 Received intravenous tissue plasminogen activator (tPA) in emergency department Z92.82 Carotid artery stenosis I65.29
--- NOTE | 2021-04-09 14:24 | CT Scan Report ---
CT head/brain wo con CLINICAL HISTORY: 80 years-old Male with post tPA scan. Follow-up study in a patient with subacute i nfarct of the left middle cerebral artery distribution. TECHNIQUE: Multiple axial CT images of the head were obtained without contrast. A dose lowering tech nique was utilized adhering to the principles of ALARA. CT DOSE: 1165.29 mGycm COMPARISON: Head CT 04/08/2021. FINDINGS: No acute intracranial hemorrhage, midline shift, intracranial mass, hydrocephalus, or abnormal extra- axial collection. There is progressive evolution of the large subacute territorial infarct involving the posterior left MCA territory overall measuring up to approximately 7.8 cm. Subacute infarcts are also noted involving the left insula and left basal ganglia. Edema from the infarct results in partia l effacement of the left lateral ventricle. No midline shift, hydrocephalus or hemorrhagic transforma tion. Chronic infarct of the left caudate nucleus. Age-related involutional changes with chronic micr ovascular ischemic disease. The calvarium is intact. The paranasal sinuses, mastoid air cells, and middle ear cavities are clear . IMPRESSION: 1. Continued evolution of the large subacute infarct of the left posterior middle cerebral artery ter ritory and left basal ganglia. 2. No midline shift or acute intracranial hemorrhage. 3. Chronic findings as above. ACT 112: Negative or not required by law. The above report was generated using voice recognition software. It may contain grammatical, syntax o r spelling errors. Electronically signed by: Kwesi Paulson M.D. 04/09/2021 2:22 PM
[2021-04-09] MEDS: SODIUM CHLORIDE 0.9% 1000ML 1,000 ML IV SCH (14:30)
--- NOTE | 2021-04-09 19:21 | Hospitalist Progress Note ---
Date of Service April 09, 2021 Assessment & Plan (1) Ischemic stroke: Presented with acute onset of dysarthria and right-sided weakness. S/P tPA in the ER after telestroke consultation with Rekha Overnight on the first night of admission, he had significant worsening of his symptoms after some initial improvement as per notation from admitting physician Rekha was consulted again and repeat imaging was performed which is extensive stroke in the MCA territory throughout left temporoparietal lobes, left basal ganglia into the reynoso radiata and frontal and occipital and insular cortex. CT angiogram the head and neck show high-grade stenosis of the left ICA which was again confirmed on repeat MRA in the middle the night Echocardiogram with negative bubble study, otherwise with moderate LVH, mild dynamic left ventricular outflow tract obstruction, EF 70%, RVSP elevated at 40- 50 mmHg Telemetry remains with sinus rhythm Hemoglobin A1c in the prediabetes range at 6.4%, LDL mildly elevated in the 140s Repeat CT head 24 hours status post TPA without hemorrhage Repeat CT head 48 hours status post TPA with continued evolution of the large subacute infarct of the left posterior middle cerebral artery territory and left basal ganglia and no midline shift or acute intracranial hemorrhage. Patient is slightly more alert and awake and following some commands on 04/09, right side remains flaccid. Remains with facial droop and inability to swallow. Having neurogenic fevers Continue blood pressure parameters SBP less than 185, DBP less than 110- nicardipine drip as needed Continues on IV fluids with normal saline at 80 mL's per hour PT/OT/speech therapy-unable to complete assessments as he is obtunded Palliative care consultation appreciated Continue [place] aspirin in the morning Start statin if able to take p.o. but doubtful -May need to place NG tube tomorrow for feeds if not improving He is at very high risk for hemorrhagic conversion and/or brain edema and herniation Prognosis very poor overall (2) Received intravenous tissue plasminogen activator (tPA) in emergency department: as above. (3) Hypertensive urgency: BPs elevated on admission, was started on nicardpipine gtt now improved (4) Carotid artery stenosis: High-grade stenosis of the LICA With massive stroke as above Not a candidate for urgent intervention at this time due to TPA If survives, will need carotid endarterectomy (5) Hypertension: Continue holding home lisinopril/HCTZ Nicardipine as needed (6) Prediabetes: Hemoglobin A1c elevated at 6.4% the prediabetic range Insulin and glucose checks as per ICU protocol (7) Fever: Most likely secondary to massive stroke, neurogenic fevers Follow Tylenol as needed -Concrete Spreader started him on ceftriaxone today Follow blood cultures, urine culture (8) Gout: No acute issues No home meds (9) Gross hematuria: Secondary to Torres trauma-witnessed patient attempting to pull Torres out Follow (10) DVT prophylaxis: Lovenox SQ Disposition-continued stay in ICU Guarded prognosis Palliative care consultation appreciated-family changed status to DNR/DNI. If clinically worsens or has evidence of herniation, would not be a candidate for craniectomy due to advanced age and would need to transition to comfort measures only Admission and Anticipated Discharge Date Admission Date: April 07, 2021 Subjective Patient seemed more awake and alert today and tracked me a bit with his left eye. He was able to follow some commands with squeezing my fingers with his left hand and he moved his left foot on command. When I first walked in the [place] , however he was pulling his Torres catheter out with his left hand and had fresh blood all over his gown and coming from the meatus. He would not speak or answer any questions. Sinus rhythm on telemetry Review of Systems Review of Systems: Unobtainable due to cognitive status Physical Exam Constitutional: WD/WN, vitals as above Eyes: PERRL, conjunctivae normal, anicteric sclerae + EOM not intact (Right eye deviated outward) ENMT: external ear and nose normal, oropharynx normal Neck: trachea midline, no thyromegaly Respiratory: + tachypneic Auscultation: + rhonchi (Upper airway); no crackles and no wheezes Cardiovascular: RRR, no murmur, no edema Chest (Breasts): Chest: normal inspection of chest Gastrointestinal (Abdomen): normal bowel sounds, soft, nontender, no hepatospl enomegaly Musculoskeletal: Extremities: extremities normal to inspection; no cyanosis and no clubbing Skin: no rashes, warm and dry Neurologic: + focal motor deficit (Right arm and leg flaccid, full strength LUE, moves L foot on command); + CN's not intact (Right facial droop, right eye deviation outward) and + not awake Genitourinary: Blood coming from meatus and some bright red blood in the Torers catheter Lymphatic: no lymphedema Results & Data Results & Data ([facility]) Vital Signs (Past 12 Hours) Vital Signs Temp Pulse Resp BP Pulse Ox 04/09/21 18:00 63 27 H 95 04/09/21 17:55 66 25 H 161/105 H 95 04/09/21 17:25 49 L 24 172/80 H 98 04/09/21 17:00 51 L 24 94 04/09/21 16:55 49 L 24 160/78 H 93 04/09/21 16:25 51 L 26 H 184/74 H 96 04/09/21 16:00 57 L 27 H 95 04/09/21 15:55 57 L 26 H 159/84 H 96 04/09/21 15:25 49 L 25 H 161/82 H 96 04/09/21 15:00 53 L 24 93 04/09/21 14:55 48 L 23 143/73 H 96 04/09/21 14:25 63 28 H 160/77 H 95 04/09/21 14:00 52 L 26 H 97 04/09/21 13:58 53 L 25 H 156/84 H 96 04/09/21 13:28 59 L 26 H 152/81 H 95 04/09/21 13:00 60 28 H 95 04/09/21 12:58 64 29 H 150/65 H 95 04/09/21 12:28 63 24 146/73 H 96 04/09/21 12:14 63 29 H 150/84 H 96 04/09/21 12:00 37.3 C 95 04/09/21 11:00 54 L 27 H 97 04/09/21 10:00 52 L 27 H 97 04/09/21 09:00 56 L 27 H 95 04/09/21 08:58 58 L 27 H 119/57 L 95 04/09/21 08:36 62 27 H 146/66 H 96 04/09/21 08:35 61 26 H 145/70 H 96 04/09/21 08:05 37.1 C 04/09/21 08:00 60 25 H 92 Laboratory Results 04/09/21 04:47 04/09/21 04:[address] 04/09/21 13:30 CT head/brain wo con CLINICAL HISTORY: 80 years-old Male with post tPA scan. Follow-up study in a pa tient with subacute infarct of the left middle cerebral artery distribution. TECHNIQUE: Multiple axial CT images of the head were obtained without contrast. A dose lowering technique was utilized adhering to the principles of ALARA. CT DOSE: 1165.29 mGycm COMPARISON: Head CT 04/08/2021. FINDINGS: No acute intracranial hemorrhage, midline shift, intracranial mass, hydrocephalus, or abnormal extra-axial collection. There is progressive evolution of the large subacute territorial infarct involving the posterior left MCA territory overall measuring up to approximately 7.8 cm. Subacute infarcts are also noted involving the left insula and left basal ganglia. Edema from the infarct results in partial effacement of the left lateral ventricle. No midline shift, hydrocephalus or hemorrhagic transformation. Chronic infarct of the left caudate nucleus. Age-related involutional changes with chronic microvascular ischemic disease. The calvarium is intact. The paranasal sinuses, mastoid air cells, and middle ear cavities are clear. IMPRESSION: 1. Continued evolution of the large subacute infarct of the left posterior middle cerebral artery territory and left basal ganglia. 2. No midline shift or acute intracranial hemorrhage. 3. Chronic findings as above. ACT 112: Negative or not required by law. The above report was generated using voice recognition software. It may contain grammatical, syntax or spelling errors. Electronically signed by: Kwesi Paulson M.D. 04/09/2021 2:22 PM PG Care Time/CCT Total # of Minutes Spent Total Time Spent with Patient: Total time spent is greater than 50% in coordination of care (as documented) at patient's floor/unit and/or counseling patient: Coding Level of Care Code 89298 Subseq Hosp Care Lvl 1 Diagnoses Ischemic stroke I63.9 Received intravenous tissue plasminogen activator (tPA) in emergency department Z92.82 Hypertensive urgency I16.0 Carotid artery stenosis I65.29 Hypertension I10 Hypertension type: unspecified Prediabetes R73.03 Fever R50.9 Gout M10.9 Gross hematuria R31.0 DVT prophylaxis Z29.9 (1) Hypertension Hypertension type: unspecified Qualified Code(s): I10 - Essential (primary) hypertension
[2021-04-10] MEDS: INSULIN ASPART 100 UNITS/ML 3 ML PEN SC SCH ×4 (00:10→17:28)
[2021-04-10] MEDS: SODIUM CHLORIDE 0.9% 1000ML 1,000 ML IV SCH ×2 (03:54→16:15)
[2021-04-10 05:19] LABS: Basophils # (auto) 0.01 K/uL (0-0.2); Basophils % (auto) 0.1 %; Eosinophils # (auto) 0.05 K/uL (0-0.5); Eosinophils % (auto) 0.4 %; Hematocrit (blood only) 42.3 % (42-52); Immature Granulocytes # (auto) 0.03 K/uL (0.00-0.02); Immature Granulocytes % (auto) 0.2 %; Lymphocytes # (auto) 1.49 K/uL (1.2-3.4); Lymphocytes % (auto) 11.4 %; Mean Corpuscular Hemoglobin 26.4 pg (25-34); Mean Corpuscular Hgb Conc 33.1 g/dL (32-36); Mean Corpuscular Volume 79.7 fL (80-100); Mean Platelet Volume 10.6 fL (7.4-10.4); Monocytes # (auto) 1.24 K/uL (0.11-0.59); Monocytes % (auto) 9.5 %; Neutrophils # (auto) 10.28 K/uL (1.4-6.5); Neutrophils % (auto) 78.4 %; Platelet Count 145 K/uL (130-400); RDW Coefficient of Variation 14.7 % (11.5-14.5); RDW Standard Deviation 42.8 fL (36.4-46.3); Red Blood Count 5.31 M/uL (4.7-6.1)
[2021-04-10 05:45] LABS: BUN Creatinine Ratio 25.3 (10-20); Calcium 7.9 mg/dl (8.5-10.1); Creatinine Clr Calc Pharmacy 61.3 ml/min; Est GFR (Non-African American) 66.4 ml/min; Magnesium 2.4 mg/dl (1.8-2.4); Potassium 3.7 mmol/L (3.5-5.1)
[2021-04-10 05:47] LABS: Albumin Globulin Ratio 1.1 (0.9-2); Bilirubin,Total 1.4 mg/dl (0.2-1); Globulin 2.8 gm/dl (2.5-4.0); Phosphorus 3.6 mg/dl (2.5-4.9); Total Protein 5.8 gm/dl (6.4-8.2)
[2021-04-10] MEDS: ENOXAPARIN INJ 40 MG/0.4 ML SYR SQ SCH (07:46)
[2021-04-10] MEDS: cefTRIAXone SODIUM 2,000 MG in DEXTROSE 5% 50 ML IV SCH (07:47)
[2021-04-10] MEDS: ASPIRIN 300 MG SUPP PR SCH (08:55)
[2021-04-10] MEDS: POTASSIUM CHLORIDE / WTR 10 MEQ/100 ML PLCT IV SCH ×3 (10:08→13:38)
--- NOTE | 2021-04-10 10:22 | Critical Care Progress Note ---
Date of Service April 10, 2021 Assessment & Plan (1) Ischemic stroke: Patient was discussed in multidisciplinary rounds. Neurologic: He received TPA this admission for an ischemic stroke. Appears to have had a large left MCA stroke. He is currently in the ICU for neuro monitoring per neurology recommendations. Continue to maintain systolic blood pressures of 140- 180. Fevers have improved. Pulmonary: No issues presently. Mentation is poor, however, he is maintaining his airway at this time. Cardiovascular: Maintain systolic blood pressure less than 185 and diastolic blood pressure less than 110. Bradycardia present possibly related to increased intracranial pressure. Hemodynamically stable. Gastrointestinal: Strict n.p.o. due to altered mental status. Will need to discuss placement of NG tube with family to initiate tube feeds and give medications. Palliative care is involved. Renal: No significant issues at present. Sodium chloride running at 80 cc an hour. Infectious disease: Continue empiric ceftriaxone. Suspect neurogenic fever. Urinalysis with 1+ leuk esterase, but appears to be a dirty urine sample. Urine culture pending. Blood cultures negative to date. Hematologic: No issues at present. Endocrine: No significant issues at present. VTE prophylaxis: Lovenox for VTE prophylaxis CODE STATUS: DNR/DNI Palliative care is involved in assisting with goals of care discussion. (2) Received intravenous tissue plasminogen activator (tPA) in emergency department: (3) Hypertensive urgency: (4) Carotid artery stenosis: (5) Acute ischemic left MCA stroke: (6) Acute encephalopathy: Admission and Anticipated Discharge Date Admission Date: April 07, 2021 Subjective Patient seen and examined this morning. Continues to be nonverbal. Able to squeeze with his left hand on command. Hemodynamically stable. Review of systems unobtainable. 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 Flaccid on the right. Left gaze preference. Psychiatric: A+Ox3, euthymic affect Results & Data Results & Data ([facility]) Vital Signs (Past 12 Hours) Vital Signs Temp Pulse Resp BP Pulse Ox 04/10/21 08:27 99.5 F 04/10/21 06:30 46 L 24 95 04/10/21 06:25 46 L 23 144/68 H 95 04/10/21 06:00 47 L 24 94 04/10/21 05:55 47 L 23 134/69 94 04/10/21 05:30 49 L 25 H 94 04/10/21 05:25 49 L 24 149/72 H 94 04/10/21 05:00 47 L 23 95 04/10/21 04:55 50 L 25 H 162/75 H 95 04/10/21 04:30 56 L 28 H 95 04/10/21 04:25 64 27 H 153/83 H 95 04/10/21 04:00 54 L 27 H 95 04/10/21 03:55 53 L 27 H 145/71 H 94 04/10/21 03:30 53 L 25 H 95 04/10/21 03:26 54 L 27 H 134/69 95 04/10/21 03:08 52 L 24 178/90 H 96 04/10/21 03:00 45 L 23 95 04/10/21 02:56 48 L 25 H 180/78 H 95 04/10/21 02:30 45 L 24 95 04/10/21 02:25 46 L 24 133/69 95 04/10/21 02:00 44 L 33 H 95 04/10/21 01:55 46 L 29 H 147/74 H 95 04/10/21 01:30 43 L 24 95 04/10/21 01:25 48 L 28 H 133/70 96 04/10/21 01:00 45 L 23 95 04/10/21 00:55 48 L 23 154/75 H 94 04/10/21 00:30 49 L 24 94 04/10/21 00:25 48 L 25 H 144/73 H 93 04/10/21 00:00 49 L 24 94 04/09/21 23:55 48 L 24 152/71 H 92 04/09/21 23:30 98.1 F 72 29 H 95 04/09/21 23:25 71 29 H 156/133 H 95 04/09/21 23:00 57 L 27 H 95 04/09/21 22:55 55 L 26 H 169/86 H 94 04/09/21 22:30 68 26 H 96 04/09/21 22:25 65 29 H 165/91 H 97 vital signs, labs and imaging reviewed Coding Level of Care Code 87897 Subseq Hosp Care Lvl 3 Diagnoses Ischemic stroke I63.9 Received intravenous tissue plasminogen activator (tPA) in emergency department Z92.82 Hypertensive urgency I16.0 Carotid artery stenosis I65.29 Acute ischemic left MCA stroke I63.512 Acute encephalopathy G93.40
[2021-04-10] MEDS ORDERED: hydrALAZINE HCL 20 MG/ML VIAL ONE (14:32)
[2021-04-10] MEDS ORDERED: hydrALAZINE HCL 20 MG/ML VIAL IV STA ×2 (14:36→17:19)
--- NOTE | 2021-04-10 15:03 | XRay Report ---
KUB CLINICAL HISTORY: Enteric tube placement. FINDINGS: An AP, portable, upright abdominal radiograph is correlated with abdominal CT dated 05/22/20 19. An enteric tube has been placed. The tip projects below the diaphragm over the proximal stomach. The side holes are at the level of the diaphragm. There is no evidence of bowel obstruction. No abnor mal calcifications are seen in the upper abdomen. The heart is enlarged. IMPRESSION: 1. An enteric tube has been placed as above. The side holes project at the level of the diaphragm and this should likely be advanced. 2. There is no evidence of bowel obstruction. Electronically signed by: Corby Aponte M.D. 04/10/2021 3:02 PM
--- NOTE | 2021-04-10 15:51 | Palliative Care Progress Note ---
Date of Service April 10, 2021 Assessment & Plan (1) Palliative care encounter: I had just missed seeing the patients , Constanza, so I called her at [phone]. We talked at length rearding his current condition. He has shown slight improvements with his interaction and awareness, albeit I do not feel his overall condition will change, I can support her wanting to continue treatment with a timeframe to see how things go. She was agreeable to place an NGT for nutritional and medication administration purposes for 4-5 days to see if there is any additional neurologic improvements. She notes that as a very active and independent person prior to this event and has stated that he would not be happy if he were dependent for care or needed to live in SNF. She would like to continue current therapy for the time being to get a better sense of his overall prognosis. Palliative care will follow. (2) Left acute arterial ischemic stroke, MCA (middle cerebral artery): (3) Dysphagia: Pt has been evaluated by speech therapy, but was obtunded and unable to participate in evaluation. As patient is showing neurologic signs of some minor improvements, would recommended speech coming to evaluate safety with swallowing, which may help his with overall decision making if he does poorly. I did set expectation that it is unlikely that he will return to baseline functioning status and will likely require full care. Admission and Anticipated Discharge Date Admission Date: April 07, 2021 Subjective Patient does open his eyes and was able to track with his left eye. Right eye without fixed gaze. He does reach for me with his left arm. Appears comfortable and in no apparent distress. See A/P for further details. Review of Systems Review of Systems: Cullen Symptom Assessment Scale PainAD 0/3 Dyspnea by observation 0//3 Palliative Performance Score 20% Physical Exam Constitutional: no acute distress Respiratory: no labored breathing Cardiovascular: Rate/Rhythm: regular rate and regular rhythm Gastrointestinal (Abdomen): Inspection/Auscultation: abdomen not distended Musculoskeletal: Extremities: extremities normal to inspection Psychiatric: Orientation: alert Results & Data ([facility]) Vital Signs (Past 12 Hours) Vital Signs Temp Pulse Resp BP Pulse Ox 04/10/21 12:00 37.2 C 04/10/21 11:25 48 L 24 153/70 H 96 04/10/21 11:00 54 L 24 97 04/10/21 10:55 48 L 25 H 170/89 H 97 04/10/21 10:25 46 L 24 162/78 H 95 04/10/21 10:00 47 L 24 94 04/10/21 09:55 51 L 24 152/95 H 96 04/10/21 09:25 54 L 26 H 170/86 H 95 04/10/21 09:00 53 L 26 H 96 04/10/21 08:55 64 29 H 155/74 H 95 04/10/21 08:27 37.5 C 04/10/21 08:26 57 L 28 H 172/82 H 96 04/10/21 08:00 49 L 24 95 04/10/21 07:55 50 L 25 H 160/71 H 94 04/10/21 07:25 49 L 40 H 168/79 H 95 04/10/21 07:00 47 L 23 94 04/10/21 06:30 46 L 24 95 04/10/21 06:25 46 L 23 144/68 H 95 04/10/21 06:00 47 L 24 94 04/10/21 05:55 47 L 23 134/69 94 04/10/21 05:30 49 L 25 H 94 04/10/21 05:25 49 L 24 149/72 H 94 04/10/21 05:00 47 L 23 95 04/10/21 04:55 50 L 25 H 162/75 H 95 04/10/21 04:30 56 L 28 H 95 04/10/21 04:25 64 27 H 153/83 H 95 04/10/21 04:00 54 L 27 H 95 04/10/21 03:55 53 L 27 H 145/71 H 94 PG Care Time/CCT Total # of Minutes Spent Total Time Spent with Patient: Total time spent is greater than 50% in coordination of care (as documented) at patient's floor/unit and/or counseling patient: 35 minutes with > 50% of that time spent assessing the patient, discussing goals of care with family and collaborating with IDT Coding Level of Care Code 40742 Subseq Hosp Care Lvl 3 Diagnoses Palliative care encounter Z51.5 Left acute arterial ischemic stroke, MCA (middle cerebral artery) I63.512 Dysphagia R13.10 Time Spent (min) 35
[2021-04-10] MEDS: LISINOPRIL/HCTZ 10/12.5MG TAB PO SCH (16:13)
[2021-04-10] MEDS: FIBERSOURCE HN 1.2 CAL 1000 ML BAG NG SCH (18:21)
[2021-04-10] MEDS: TUBE FEEDING WATER FLUSH NG SCH ×2 (18:21→21:39)
--- NOTE | 2021-04-10 19:16 | Hospitalist Progress Note ---
Date of Service April 10, 2021 Assessment & Plan (1) Ischemic stroke: Presented with acute onset of dysarthria and right-sided weakness. S/P tPA in the ER after telestroke consultation with Rekha Overnight on the first night of admission, he had significant worsening of his symptoms after some initial improvement as per notation from admitting physician Rekha was consulted again and repeat imaging was performed which shows extensive stroke in the MCA territory throughout left temporoparietal lobes, left basal ganglia into the reynoso radiata and frontal and occipital and insular cortex. CT angiogram the head and neck show high-grade stenosis of the left ICA which was again confirmed on repeat MRA in the middle the night Echocardiogram with negative bubble study, otherwise with moderate LVH, mild dynamic left ventricular outflow tract obstruction, EF 70%, RVSP elevated at 40- 50 mmHg Telemetry remains with sinus rhythm Hemoglobin A1c in the prediabetes range at 6.4%, LDL mildly elevated in the 140s Repeat CT head 24 hours status post TPA without hemorrhage Repeat CT head 48 hours status post TPA with continued evolution of the large subacute infarct of the left posterior middle cerebral artery territory and left basal ganglia and no midline shift or acute intracranial hemorrhage. Patient is slightly more alert and awake and following some commands on 04/09, right side remains flaccid. Remains with facial droop and inability to swallow. Having neurogenic fevers On 04/10, he is again more awake and alert and following commands, moving the left side on command, trying to vocalize some words but overall still quite disabled NG tube placed and starting tube feeds on 04/10 Continue blood pressure parameters SBP less than 185, DBP less than 110- nicardipine drip as needed Continues on IV fluids with normal saline at 80 mL's per hour PT/OT/speech therapy-unable to complete assessments as he was obtunded, however will have them reevaluate tomorrow as he is a little bit more alert Palliative care consultation appreciated Continue aspirin but change from SC to p.o. for tomorrow another NG tube in place Start atorvastatin 80 mg p.o. daily now that NG tube in place -May need to place NG tube tomorrow for feeds if not improving He is at very high risk for hemorrhagic conversion and/or brain edema and herniation-neurology reports that "swell watch" will be completed on 04/11/2021 and will be okay to transfer out of the ICU at that time to a stepdown unit Prognosis very poor overall (2) Received intravenous tissue plasminogen activator (tPA) in emergency department: as above. (3) Hypertensive urgency: BPs elevated on admission, was started on nicardipine gtt now improved but remain elevated at times (4) Carotid artery stenosis: High-grade stenosis of the LICA With massive stroke as above Not a candidate for urgent intervention at this time due to TPA If survives, will need carotid endarterectomy Continue aspirin, starting atorvastatin (5) Hypertension: Restart home lisinopril/HCTZ now that NG tube in place Nicardipine as needed (6) Prediabetes: Hemoglobin A1c elevated at 6.4% the prediabetic range Insulin and glucose checks as per ICU protocol (7) Fever: Most likely secondary to massive stroke, neurogenic fevers Now improving Tylenol as needed -Continue empiric ceftriaxone which was started on 04/09 Follow blood cultures, urine culture-no growth to date (8) Gout: No acute issues No home meds (9) Gross hematuria: Secondary to Torres trauma-witnessed patient attempting to pull Torres out Now resolved (10) DVT prophylaxis: Lovenox SQ Disposition-continued stay in ICU Guarded prognosis Palliative care consultation appreciated-family changed status to DNR/DNI. If clinically worsens or has evidence of herniation, would not be a candidate for craniectomy due to advanced age and would need to transition to comfort measures only Admission and Anticipated Discharge Date Admission Date: April 07, 2021 Subjective Patient does open his eyes today in response to verbal stimulus. When I asked him to state his name, he did verbalize something but it was not intelligible. I also asked if he had pain and I believe he said no although it was slurred. Fevers are improving. Telemetry with normal sinus rhythm and sinus bradycardia at times in the 40s Review of Systems Review of Systems: Unobtainable due to cognitive status Physical Exam Constitutional: WD/WN, vitals as above Eyes: PERRL, conjunctivae normal, anicteric sclerae + EOM not intact (Right eye deviated outward) Neck: trachea midline, no thyromegaly Respiratory: normal respiratory effort, lungs clear to auscultation Cardiovascular: RRR, no murmur, no edema Chest (Breasts): Chest: normal inspection of chest Gastrointestinal (Abdomen): normal bowel sounds, soft, nontender, no hepatosplenomegaly Musculoskeletal: Extremities: extremities normal to inspection; no cyanosis and no clubbing Skin: no rashes, warm and dry Neurologic: + focal motor deficit (Right arm and leg flaccid, full strength LUE, moves L foot on command); + CN's not intact (Right facial droop, right eye deviation outward) A little bit more awake and alert today, tried to vocalize answers to questions but speech was slurred Lymphatic: no lymphedema Results & Data Results & Data ([facility]) Vital Signs (Past 12 Hours) Vital Signs Temp Pulse Resp BP Pulse Ox 04/10/21 18:25 70 31 H 166/80 H 96 04/10/21 18:00 68 26 H 96 04/10/21 17:55 63 27 H 183/103 H 96 04/10/21 17:25 68 26 H 184/76 H 96 04/10/21 17:00 63 25 H 96 04/10/21 16:55 64 26 H 191/90 H 96 04/10/21 16:25 71 21 183/97 H 97 04/10/21 16:05 37.5 C 04/10/21 16:00 72 21 96 04/10/21 15:55 75 25 H 198/95 H 97 04/10/21 15:30 76 20 97 04/10/21 15:26 63 25 H 175/81 H 97 04/10/21 15:00 74 25 H 97 04/10/21 14:56 66 25 H 191/77 H 98 04/10/21 14:30 57 L 27 H 97 04/10/21 14:25 72 28 H 203/175 H 97 04/10/21 14:00 53 L 25 H 97 04/10/21 13:56 54 L 26 H 180/80 H 97 04/10/21 13:30 52 L 24 97 04/10/21 13:25 57 L 26 H 146/115 H 97 04/10/21 13:00 49 L 24 98 04/10/21 12:56 53 L 23 152/123 H 97 04/10/21 12:30 50 L 25 H 97 04/10/21 12:25 50 L 25 H 191/91 H 97 04/10/21 12:00 37.2 C 49 L 25 H 97 04/10/21 11:55 50 L 25 H 171/86 H 97 04/10/21 11:30 49 L 25 H 97 04/10/21 11:25 48 L 24 153/70 H 96 04/10/21 11:00 54 L 24 97 04/10/21 10:55 48 L 25 H 170/89 H 97 04/10/21 10:25 46 L 24 162/78 H 95 04/10/21 10:00 47 L 24 94 04/10/21 09:55 51 L 24 152/95 H 96 04/10/21 09:25 54 L 26 H 170/86 H 95 04/10/21 09:00 53 L 26 H 96 04/10/21 08:55 64 29 H 155/74 H 95 04/10/21 08:27 37.5 C 04/10/21 08:26 57 L 28 H 172/82 H 96 04/10/21 08:00 49 L 24 95 04/10/21 07:55 50 L 25 H 160/71 H 94 04/10/21 07:25 49 L 40 H 168/79 H 95 Laboratory Results 04/10/21 04/10/21 04/10/21 Range/Units 17:27 12:39 05:16 WBC (4.8-10.8) K/uL RBC (4.7-6.1) M/uL Hgb (14.0-18.0) g/dL Hct (42-52) % MCV (80-100) fL MCH (25-34) pg MCHC (32-36) g/dL RDW Std Deviation (36.4-46.3) fL RDW Coeff of Jes[place] (11.5-14.5) % Plt Count (130-400) K/uL MPV (7.4-10.4) fL Immature Gran % (Auto) % Neut % (Auto) % Lymph % (Auto) % [place] % (Auto) % Eos % (Auto) % Baso % (Auto) % Neut # (Auto) (1.4-6.5) K/uL Lymph # (Auto) (1.2-3.4) K/uL [place] # (Auto) (0.11-0.59) K/uL Eos # (Auto) (0-0.5) K/uL Baso # (Auto) (0-0.2) K/uL Immature Gran # (Auto) (0.00-0.02) K/uL Sodium (136-145) mmol/L Potassium (3.5-5.1) mmol/L Chloride (98-107) mmol/L Carbon Dioxide (21-32) mmol/L Anion Gap (3-11) BUN (7-18) mg/dl Creatinine (0.6-1.4) mg/dl Est Cr Clr Drug Dosing ml/min Est GFR ( Amer) ml/min Est GFR (Non-Af Amer) ml/min BUN/Creatinine Ratio (10-20) Glucose (70-99) mg/dl POC Glucose 89 88 90 (70-99) mg/dl Calcium (8.5-10.1) mg/dl Phosphorus (2.5-4.9) mg/dl Magnesium (1.8-2.4) mg/dl Total Bilirubin (0.2-1) mg/dl AST (15-37) U/L ALT (12-78) U/L Alkaline Phosphatase (45-117) U/L Total Protein (6.4-8.2) gm/dl Albumin (3.4-5.0) gm/dl Globulin (2.5-4.0) gm/dl Albumin/Globulin Ratio (0.9-2) 04/10/21 04/10/21 04/10/21 Range/Units 05:05 05:05 00:04 WBC 13.10 H (4.8-10.8) K/uL RBC 5.31 (4.7-6.1) M/uL Hgb 14.0 (14.0-18.0) g/dL Hct 42.3 (42-52) % MCV 79.7 L (80-100) fL MCH 26.4 (25-34) pg MCHC 33.1 (32-36) g/dL RDW Std Deviation 42.8 (36.4-46.3) fL RDW Coeff of [place] 14.7 H (11.5-14.5) % Plt Count 145 (130-400) K/uL MPV 10.6 H (7.4-10.4) fL Immature Gran % (Auto) 0.2 % Neut % (Auto) 78.4 % Lymph % (Auto) 11.4 % [place] % (Auto) 9.5 % Eos % (Auto) 0.4 % Baso % (Auto) 0.1 % Neut # (Auto) 10.28 H (1.4-6.5) K/uL Lymph # (Auto) 1.49 (1.2-3.4) K/uL [place] # (Auto) 1.24 H (0.11-0.59) K/uL Eos # (Auto) 0.05 (0-0.5) K/uL Baso # (Auto) 0.01 (0-0.2) K/uL Immature Gran # (Auto) 0.03 H (0.00-0.02) K/uL Sodium 145 (136-145) mmol/L Potassium 3.7 (3.5-5.1) mmol/L Chloride 115 H (98-107) mmol/L Carbon Dioxide 22 (21-32) mmol/L Anion Gap 8.0 (3-11) BUN 27 H (7-18) mg/dl Creatinine 1.06 (0.6-1.4) mg/dl Est Cr Clr Drug Dosing 61.3 ml/min Est GFR ( Amer) 77.0 ml/min Est GFR (Non-Af Amer) 66.4 ml/min BUN/Creatinine Ratio 25.3 H (10-20) Glucose 99 (70-99) mg/dl POC Glucose 92 (70-99) mg/dl Calcium 7.9 L (8.5-10.1) mg/dl Phosphorus 3.6 (2.5-4.9) mg/dl Magnesium 2.4 (1.8-2.4) mg/dl Total Bilirubin 1.4 H (0.2-1) mg/dl AST 27 (15-37) U/L ALT 18 (12-78) U/L Alkaline Phosphatase 55 (45-117) U/L Total Protein 5.8 L (6.4-8.2) gm/dl Albumin 3.0 L (3.4-5.0) gm/dl Globulin 2.8 (2.5-4.0) gm/dl Albumin/Globulin Ratio 1.1 (0.9-2) PG Care Time/CCT Total # of Minutes Spent Total Time Spent with Patient: Total time spent is greater than 50% in coordination of care (as documented) at patient's floor/unit and/or counseling patient: Coding Level of Care Code 11136 Subseq Hosp Care Lvl 2 Diagnoses Ischemic stroke I63.9 Received intravenous tissue plasminogen activator (tPA) in emergency department Z92.82 Hypertensive urgency I16.0 Carotid artery stenosis I65.29 Hypertension I10 Hypertension type: unspecified Prediabetes R73.03 Fever R50.9 Gout M10.9 Gross hematuria R31.0 DVT prophylaxis Z29.9 (1) Hypertension Hypertension type: unspecified Qualified Code(s): I10 - Essential (primary) hypertension
[2021-04-11] MEDS: SODIUM CHLORIDE 0.9% 1000ML 1,000 ML IV SCH (00:13)
[2021-04-11] MEDS: INSULIN ASPART 100 UNITS/ML 3 ML PEN SC SCH ×4 (00:17→18:36)
[2021-04-11] MEDS: TUBE FEEDING WATER FLUSH NG SCH ×6 (01:51→22:02)
[2021-04-11 05:28] LABS: Basophils # (auto) 0.01 K/uL (0-0.2); Basophils % (auto) 0.1 %; Eosinophils # (auto) 0.01 K/uL (0-0.5); Eosinophils % (auto) 0.1 %; Hematocrit (blood only) 43.4 % (42-52); Hemoglobin 14.5 g/dL (14.0-18.0); Immature Granulocytes # (auto) 0.04 K/uL (0.00-0.02); Immature Granulocytes % (auto) 0.3 %; Lymphocytes # (auto) 1.16 K/uL (1.2-3.4); Lymphocytes % (auto) 7.7 %; Mean Corpuscular Hemoglobin 26.5 pg (25-34); Mean Corpuscular Hgb Conc 33.4 g/dL (32-36); Mean Corpuscular Volume 79.2 fL (80-100); Mean Platelet Volume 10.9 fL (7.4-10.4); Monocytes # (auto) 1.33 K/uL (0.11-0.59); Monocytes % (auto) 8.9 %; Neutrophils # (auto) 12.43 K/uL (1.4-6.5); Neutrophils % (auto) 82.9 %; Platelet Count 151 K/uL (130-400); RDW Coefficient of Variation 14.6 % (11.5-14.5); RDW Standard Deviation 42.1 fL (36.4-46.3); Red Blood Count 5.48 M/uL (4.7-6.1); White Blood Count 14.98 K/uL (4.8-10.8)
[2021-04-11 06:00] LABS: BUN Creatinine Ratio 23.1 (10-20); Calcium 7.9 mg/dl (8.5-10.1); Creatinine Clr Calc Pharmacy 64.9 ml/min; Est GFR (African American) 82.6 ml/min; Est GFR (Non-African American) 71.3 ml/min; Magnesium 2.7 mg/dl (1.8-2.4); Potassium 3.6 mmol/L (3.5-5.1)
[2021-04-11 06:03] LABS: Albumin Globulin Ratio 0.9 (0.9-2); Bilirubin,Total 1.6 mg/dl (0.2-1); Globulin 3.2 gm/dl (2.5-4.0); Phosphorus 3.6 mg/dl (2.5-4.9); Total Protein 6.2 gm/dl (6.4-8.2)
[2021-04-11] MEDS: POTASSIUM CHLORIDE / WTR 10 MEQ/100 ML PLCT IV SCH ×4 (06:34→11:16)
--- NOTE | 2021-04-11 06:41 | XRay Report ---
KUB CLINICAL HISTORY: NGT insertion COMPARISON STUDY: KUB April 10, 2021. FINDINGS: Tip of nasogastric tube is within the gastric fundus. Mild cardiomegaly is noted. Visualize d bowel gas pattern is unremarkable. IMPRESSION: Tip of nasogastric tube within the gastric fundus. ACT 112: Negative or not required by law. Electronically signed by: Marcelino Rai M.D. 04/11/2021 6:39 AM
[2021-04-11] MEDS: ENOXAPARIN INJ 40 MG/0.4 ML SYR SQ SCH (08:20)
[2021-04-11] MEDS: ATORVASTATIN 40 MG TAB NG SCH ×2 (08:25→10:34)
[2021-04-11] MEDS: ASPIRIN 81 MG CHEW NG SCH ×2 (08:25→10:34)
[2021-04-11] MEDS: LISINOPRIL/HCTZ 10/12.5MG TAB PO SCH ×2 (08:25→10:34)
[2021-04-11] MEDS ORDERED: POTASSIUM CHLORIDE / WTR 10 MEQ/100 ML PLCT IV SCH (09:00)
[2021-04-11] MEDS ORDERED: ASPIRIN 81 MG ECTAB PO SCH (09:00)
--- NOTE | 2021-04-11 09:10 | Critical Care Progress Note ---
Date of Service April 11, 2021 Assessment & Plan (1) Ischemic stroke: Patient was discussed in multidisciplinary rounds. Neurologic: He received TPA this admission for an ischemic stroke. Appears to have had a large left MCA stroke. He has very severe deficits. Continue to maintain systolic blood pressures of 140-180. Fevers have improved. Pulmonary: No issues presently. Cardiovascular: Maintain systolic blood pressure less than 185 and diastolic blood pressure less than 110. Hemodynamically stable. Unable to give oral medications as he pulled out his NG tube twice overnight. Gastrointestinal: Patient pulled out his NG tube twice. Palliative care is involved. Renal: No significant issues at present. Sodium chloride running at 80 cc an hour. Infectious disease: Urine culture without any significant breath. Blood cultures negative to date. Discontinue antibiotics at this time. Fevers are likely neurogenic in origin. Hematologic: No issues at present. Endocrine: No significant issues at present. VTE prophylaxis: Lovenox for VTE prophylaxis CODE STATUS: DNR/DNI Palliative care is involved in assisting with goals of care discussion. Patient is stable for transfer to PCU. This was discussed with the hospitalist. (2) Received intravenous tissue plasminogen activator (tPA) in emergency department: (3) Hypertensive urgency: (4) Carotid artery stenosis: (5) Acute ischemic left MCA stroke: (6) Acute encephalopathy: Admission and Anticipated Discharge Date Admission Date: April 07, 2021 Subjective Patient able to open his eyes and move his left extremity spontaneously. Otherwise no acute events. Unable to participate in review of systems. 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 Flaccid on the right. Left gaze preference. Psychiatric: A+Ox3, euthymic affect Results & Data Results & Data ([facility]) Vital Signs (Past 12 Hours) Vital Signs Temp Pulse Resp BP Pulse Ox 04/11/21 08:00 69 04/11/21 07:55 97.7 F 67 33 H 180/83 H 96 04/11/21 06:55 76 27 H 182/108 H 96 04/11/21 06:00 70 28 H 96 04/11/21 05:55 67 29 H 176/120 H 97 04/11/21 05:30 73 31 H 96 04/11/21 05:25 62 19 170/78 H 97 04/11/21 05:00 69 18 92 04/11/21 04:30 55 L 27 H 94 04/11/21 04:00 70 26 H 95 04/11/21 03:58 68 29 H 156/74 H 95 04/11/21 03:30 98.2 F 69 30 H 96 04/11/21 03:00 63 31 H 95 04/11/21 02:55 66 28 H 169/91 H 95 04/11/21 02:30 64 29 H 95 04/11/21 02:25 66 29 H 163/79 H 95 04/11/21 02:00 75 28 H 94 04/11/21 01:55 76 31 H 161/78 H 95 04/11/21 01:30 67 26 H 95 04/11/21 01:26 67 29 H 183/92 H 95 04/11/21 01:00 68 28 H 95 04/11/21 00:55 64 29 H 162/86 H 95 04/11/21 00:30 69 31 H 96 04/11/21 00:25 67 29 H 171/73 H 96 04/11/21 00:00 64 28 H 95 04/10/21 23:55 72 28 H 167/80 H 96 04/10/21 23:30 68 30 H 95 04/10/21 23:25 68 30 H 155/76 H 95 04/10/21 23:00 99.1 F 72 22 95 04/10/21 22:56 68 31 H 159/75 H 95 04/10/21 22:30 70 27 H 95 04/10/21 22:25 67 30 H 170/84 H 95 04/10/21 22:00 67 18 95 04/10/21 21:55 76 27 H 155/82 H 94 04/10/21 21:30 71 25 H 96 04/10/21 21:25 70 30 H 181/85 H 95 Vital signs, labs and imaging reviewed Coding Level [facility] Code 467[facility] Diagnoses Ischemic stroke I63.9 Received intravenous tissue plasminogen activator (tPA) in emergency department Z92.82 Hypertensive urgency I16.0 Carotid artery stenosis I65.29 Acute ischemic left MCA stroke I63.512 Acute encephalopathy G93.40
--- NOTE | 2021-04-11 11:06 | XRay Report ---
KUB HISTORY: Coresafe placement COMPARISON: None. FINDINGS: Feeding tube is curled within the proximal stomach with the tip terminating at the GE junct ion. This should be advanced by 5 to 10 cm. No renal calculi. No ureteral calculi. No pneumoperitone um or pneumatosis. IMPRESSION: Feeding tube is curled within the proximal stomach with the tip terminating at the GE junction. This should be advanced by 5 to 10 cm. ACT 112: Negative or not required by law. Electronically signed by: Rigo Amin M.D. 04/11/2021 11:05 AM
[2021-04-11] MEDS: FIBERSOURCE HN 1.2 CAL 1000 ML BAG NG SCH (12:15)
--- NOTE | 2021-04-11 21:32 | Hospitalist Progress Note ---
Date of Service April 11, 2021 Assessment & Plan (1) Ischemic stroke: Presented with acute onset of dysarthria and right-sided weakness. S/P tPA in the ER after telestroke consultation with Rekha CT angiogram the head and neck show high-grade stenosis of the left ICA which was again confirmed on repeat MRA Overnight on the first night of admission, he had significant worsening of his symptoms after some initial improvement as per notation from admitting physician Rekha was consulted again and repeat imaging was performed which shows extensive stroke in the MCA territory throughout left temporoparietal lobes, left basal ganglia into the reynoso radiata and frontal and occipital and insular cortex. 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 Patient is slightly more alert and awake and following some commands on 04/09, right side remains flaccid. Remains with facial droop and inability to swallow. Was having neurogenic fevers which are now resolved On 04/10, he is again more awake and alert and following commands, moving the left side on command, trying to vocalize some words but overall still quite disabled NG tube placed and starting tube feeds on 04/10 On 04/11, much more alert and awake but still completely aphasic, not following commands more consistently but can only move the left side. Continue blood pressure parameters SBP less than 185, DBP less than 110 and work to normalize blood pressure over the next couple of days IV fluids discontinued, tube feeds continue with free water flushes PT/OT/speech therapy-speech therapy unable to complete assessment. PT/OT assess patient on 04/11 and recommend extended care facility and/or SNF with prognosis of poor rehab potential Palliative care consultation appreciated Continue aspirin 81 mg per NG tube daily -Continue atorvastatin 80 mg per NG tube daily He was at very high risk for hemorrhagic conversion and/or brain edema and herniation-neurology reports that "swell watch" will be completed on 04/11/2021 and will be okay to transfer out of the ICU at that time to a stepdown unit-no evidence of herniation at this time-downgrade to PCU Prognosis very poor overall We will need to discuss placement of PEG tube with family, however patient continues to pull NG tube and PEG tube may not be safe until he improves. (2) Received intravenous tissue plasminogen activator (tPA) in emergency department: as above. (3) Hypertensive urgency: BPs elevated on admission, was started on nicardipine gtt now improved after restarting home lisinopril/HCTZ (4) Carotid artery stenosis: High-grade stenosis of the LICA With massive stroke as above Not a candidate for urgent intervention at this time due to TPA If survives, will need carotid endarterectomy-timing of this to be determined Continue aspirin, atorvastatin (5) Hypertension: Continue lisinopril/HCTZ now that NG tube in place (6) Prediabetes: Hemoglobin A1c elevated at 6.4% the prediabetic range Insulin and glucose checks as per ICU protocol (7) Fever: Most likely secondary to massive stroke, neurogenic fevers Now resolved Tylenol as needed Received empiric ceftriaxone x48 hours-now discontinued Follow blood cultures, urine culture-no growth to date (8) Gout: No acute issues No home meds (9) Gross hematuria: Secondary to Torres trauma-witnessed patient attempting to pull Torres out Now resolved (10) DVT prophylaxis: Lovenox SQ Disposition-continued but downgrade to PCU Guarded prognosis Palliative care consultation appreciated-family changed status to DNR/DNI. If clinically worsens or has evidence of herniation, would not be a candidate for craniectomy due to advanced age and would need to transition to comfort measures only Admission and Anticipated Discharge Date Admission Date: April 07, 2021 Subjective Pt pulled his NGT out twice last night and it was replaced this AM for a third time. He is much more alert and aware today but still cannot speak. He is following commands more consistently on the left side only. He was downgraded from ICU to PCU. Tele: Sinus rhythm and sinus bradycardia Review of Systems Review of Systems: Unobtainable due to cognitive status Physical Exam Constitutional: WD/WN, vitals as above Eyes: PERRL, conjunctivae normal, anicteric sclerae + EOM not intact (Right eye deviated medially) ENMT: external ear and nose normal, oropharynx normal Neck: trachea midline, no thyromegaly Respiratory: normal respiratory effort, lungs clear to auscultation Cardiovascular: RRR, no murmur, no edema Chest (Breasts): Chest: normal inspection of chest Gastrointestinal (Abdomen): normal bowel sounds, soft, nontender, no hepatosplenomegaly Musculoskeletal: Extremities: extremities normal to inspection; no cyanosis and no clubbing Skin: no rashes, warm and dry Neurologic: + focal motor deficit (Right arm and leg flaccid, full strength L UE, moves L foot on command); + CN's not intact (Right facial droop, right eye deviation medially) Lymphatic: no lymphedema Results & Data Results & Data ([facility]) Vital Signs (Past 12 Hours) Vital Signs Pulse Resp BP BP Pulse Ox 04/11/21 19:25 70 31 H 130/83 93 04/11/21 19:10 76 21 152/73 H 94 04/11/21 19:00 70 33 H 93 04/11/21 18:55 66 34 H 125/88 92 04/11/21 17:55 71 30 H 151/84 H 93 04/11/21 16:55 69 35 H 166/95 H 93 04/11/21 16:00 70 04/11/21 15:55 73 36 H 154/81 H 93 04/11/21 14:56 70 19 166/81 H 94 04/11/21 13:55 69 32 H 162/103 H 95 04/11/21 12:55 68 31 H 169/104 H 94 04/11/21 12:23 165/102 H 04/11/21 12:00 72 30 H 95 04/11/21 11:56 64 30 H 198/114 H 98 04/11/21 10:56 62 25 H 172/93 H 95 04/11/21 09:55 67 27 H 186/109 H 96 Laboratory Results 04/11/21 05:16 04/11/21 05:16 Diagnostic Findings KUB X-Ray 04/11/21 03:39 KUB CLINICAL HISTORY: NGT insertion COMPARISON STUDY: KUB April 10, 2021. FINDINGS: Tip of nasogastric tube is within the gastric fundus. Mild cardiomegaly is noted. Visualized bowel gas pattern is unremarkable. IMPRESSION: Tip of nasogastric tube within the gastric fundus. ACT 112: Negative or not required by law. Electronically signed by: Marcelino Rai M.D. 04/11/2021 6:39 AM KUB X-Ray 04/11/21 09:57 KUB HISTORY: Coresafe placement COMPARISON: None. FINDINGS: Feeding tube is curled within the proximal stomach with the tip terminating at the GE junction. This should be advanced by 5 to 10 cm. No renal calculi. No ureteral calculi. No pneumoperitoneum or pneumatosis. IMPRESSION: Feeding tube is curled within the proximal stomach with the tip terminating at the GE junction. This should be advanced by 5 to 10 cm. ACT 112: Negative or not required by law. Electronically signed by: Rigo Amin M.D. 04/11/2021 11:05 AM PG Care Time/CCT Total # of Minutes Spent Total Time Spent with Patient: Total time spent is greater than 50% in coordination of care (as documented) at patient's floor/unit and/or counseling patient: Coding Level of Care Code 97769 Subseq Hosp Care Lvl 3 Diagnoses Ischemic stroke I63.9 Received intravenous tissue plasminogen activator (tPA) in emergency department Z92.82 Hypertensive urgency I16.0 Carotid artery stenosis I65.29 Hypertension I10 Hypertension type: unspecified Prediabetes R73.03 Fever R50.9 Gout M10.9 Gross hematuria R31.0 DVT prophylaxis Z29.9 (1) Hypertension Hypertension type: unspecified Qualified Code(s): I10 - Essential (primary) hypertension
[2021-04-12] MEDS: INSULIN ASPART 100 UNITS/ML 3 ML PEN SC SCH ×3 (00:42→12:21)
[2021-04-12] MEDS: TUBE FEEDING WATER FLUSH NG SCH ×4 (02:51→15:47)
[2021-04-12 05:56] LABS: Basophils # (auto) 0.01 K/uL (0-0.2); Basophils % (auto) 0.1 %; Eosinophils # (auto) 0.01 K/uL (0-0.5); Eosinophils % (auto) 0.1 %; Hematocrit (blood only) 44.5 % (42-52); Hemoglobin 14.9 g/dL (14.0-18.0); Immature Granulocytes # (auto) 0.05 K/uL (0.00-0.02); Immature Granulocytes % (auto) 0.3 %; Lymphocytes # (auto) 1.42 K/uL (1.2-3.4); Lymphocytes % (auto) 9.8 %; Mean Corpuscular Hemoglobin 26.8 pg (25-34); Mean Corpuscular Hgb Conc 33.5 g/dL (32-36); Mean Corpuscular Volume 80.2 fL (80-100); Mean Platelet Volume 11.7 fL (7.4-10.4); Monocytes # (auto) 1.13 K/uL (0.11-0.59); Monocytes % (auto) 7.8 %; Neutrophils # (auto) 11.84 K/uL (1.4-6.5); Neutrophils % (auto) 81.9 %; Platelet Count 185 K/uL (130-400); RDW Coefficient of Variation 14.7 % (11.5-14.5); Red Blood Count 5.55 M/uL (4.7-6.1); White Blood Count 14.46 K/uL (4.8-10.8)
[2021-04-12 06:18] LABS: Albumin Level 3.1 gm/dl (3.4-5.0); BUN Creatinine Ratio 26.3 (10-20); Calcium 8.7 mg/dl (8.5-10.1); Creatinine Clr Calc Pharmacy 67.6 ml/min; Est GFR (African American) 86.8 ml/min; Est GFR (Non-African American) 74.9 ml/min; Magnesium 2.4 mg/dl (1.8-2.4); Potassium 3.6 mmol/L (3.5-5.1)
[2021-04-12 06:36] LABS: Albumin Globulin Ratio 0.9 (0.9-2); Bilirubin,Total 2.1 mg/dl (0.2-1); Globulin 3.4 gm/dl (2.5-4.0); Phosphorus 3.3 mg/dl (2.5-4.9); Total Protein 6.5 gm/dl (6.4-8.2)
--- NOTE | 2021-04-12 07:53 | XRay Report ---
KUB HISTORY: Corsafe placement COMPARISON: KUB 04/11/2021. FINDINGS: Feeding tube is located within the stomach with the tip terminating at the fundus. Mildly d ilated gas-filled loops of bowel remain unchanged. No renal calculi. No ureteral calculi. No pneumop eritoneum or pneumatosis. IMPRESSION: The tip of the feeding tube is located within the fundus of the stomach. ACT 112: Negative or not required by law. Electronically signed by: Rigo Amin M.D. 04/12/2021 7:52 AM
[2021-04-12] MEDS: ASPIRIN 81 MG CHEW NG SCH (08:27)
[2021-04-12] MEDS: ATORVASTATIN 40 MG TAB NG SCH (08:27)
[2021-04-12] MEDS: ENOXAPARIN INJ 40 MG/0.4 ML SYR SQ SCH (08:27)
[2021-04-12] MEDS: LISINOPRIL/HCTZ 10/12.5MG TAB PO SCH (08:27)
--- NOTE | 2021-04-12 09:31 | XRay Report ---
XR KUB/Abdomen 1 view CLINICAL HISTORY: Coresafe placement COMPARISON STUDY: April 11, 2021 FINDINGS: Few gas-filled loops of large bowel are seen within the central aspect of the abdomen which measure u p to 6 cm in diameter. Stable position of feeding tube with tip terminating within left upper quadrant, below level of hemid iaphragm Examination is slightly limited due to motion artifact. IMPRESSION: 1. Tip of the feeding tube is seen below level of the left hemidiaphragm. 2. Gas-filled loops of large bowel within upper limits of normal. ACT 112: Negative or not required by law. The above report was generated using voice recognition software. It may contain grammatical, syntax o r spelling errors. Electronically signed by: Cherelle Horvath DO 04/12/2021 9:30 AM
--- NOTE | 2021-04-12 11:07 | Palliative Care Progress Note ---
Date of Service April 12, 2021 Assessment & Plan (1) Palliative care encounter: I met with the patient and Constanza in room 102. He has been downgraded to tele. He continues to be alert and moving his left arm, but no overall meaningful interaction or purposeful movements noted. I talked to speech and they are going to eval today. I talked with Constanza who confirmed that he would not want permanent feeding tubes placed for life prolonging measures. She had mentioned prior about him going to [facility] and when I explained the rigorous expectations she did agree it would not be a good fit for him. She was liking that idea because of the proximity to her home . She has stated that in previous conversations he has said that he would not want to go to a alf. In talking further, she mentioned she would like to look into the opportunity to taking him home with hospice and additional caregiver support which could occur with other family members and paid caregivers. For now, she would like to continue tube feedings until a solid plan is in place. I did communicate the above with case management and Dr. Blanton. Please contact palliative medicine if we can be of further support or help with this individual. (2) Left acute arterial ischemic stroke, MCA (middle cerebral artery): (3) Dysphagia: Pt has been evaluated by speech therapy, but was obtunded and unable to participate in evaluation. As patient is showing neurologic signs of some minor improvements, I talked with speech therapy today who will come to do an evaluation, which may help his with overall decision making if he does poorly. I did set expectation that it is unlikely that he will return to baseline functioning status and will likely require full care which his significant other does understand. Admission and Anticipated Discharge Date Admission Date: April 07, 2021 Subjective Pt does have an NGT in place. He is much more alert and aware today but still cannot speak. He is following some commands more consistently on the left side only. See A/P for further information. Review of Systems Review of Systems: [place] Symptom Assessment Scale PainAD 0/3 Dyspnea by observation 0//3 Palliative Performance Score 20% Physical Exam Constitutional: no acute distress Respiratory: no labored breathing Cardiovascular: Rate/Rhythm: regular rate and regular rhythm Gastrointestinal (Abdomen): Inspection/Auscultation: abdomen not distended Musculoskeletal: Extremities: extremities normal to inspection Psychiatric: Orientation: alert Results & Data ([facility]) Vital Signs (Past 12 Hours) Vital Signs Temp Pulse Resp BP Pulse Ox 04/12/21 08:00 67 04/12/21 07:55 62 30 H 154/88 H 95 04/12/21 06:55 69 20 111/80 94 04/12/21 04:55 71 23 170/86 H 94 04/12/21 03:55 74 25 H 160/91 H 94 04/12/21 02:55 67 26 H 139/74 95 04/12/21 01:56 64 23 160/85 H 93 04/12/21 00:55 60 21 122/71 94 04/12/21 00:00 37.1 C 59 L 04/11/21 23:55 66 24 147/85 H 94 PG Care Time/CCT Total # of Minutes Spent Total Time Spent with Patient: Total time spent is greater than 50% in coordination of care (as documented) at patient's floor/unit and/or counseling patient: 35 minutes with > 50% of that time spent assessing the patient, discussing goals of care with significant other, and collaborating with IDT Coding Level of Care Code 55843 Subseq Hosp Care Lvl 3 Diagnoses Palliative care encounter Z51.5 Left acute arterial ischemic stroke, MCA (middle cerebral artery) I63.512 Dysphagia R13.10 Time Spent (min) 35
--- NOTE | 2021-04-12 12:56 | Ultrasound Report ---
ABDOMINAL ULTRASOUND, RIGHT UPPER QUADRANT HISTORY: elevated LFTs. COMPARISON: Abdomen and pelvis CT 05/22/2019. FINDINGS: Pancreas: Obscured by overlying bowel gas. Liver: Unremarkable. Gallbladder: No gallbladder wall thickening. No gallstones. A 4 mm gallbladder polyp. CBD: 6 mm. Right kidney: No hydronephrosis. IMPRESSION: 1. A 4 mm gallbladder polyp. No gallstones. 2. The pancreas was obscured by overlying bowel gas. 3. Normal liver. ACT 112: Negative or not required by law. Electronically signed by: Rigo Amin M.D. 04/12/2021 12:54 PM
[2021-04-12] MEDS ORDERED: ATROPINE SULFATE 1% OP SOLN 5 ML BTL SL PRN (15:28)
[2021-04-12] MEDS ORDERED: ONDANSETRON 4 MG OD TAB SL PRN (15:28)
[2021-04-12] MEDS ORDERED: MoRPHine SULFATE 2 MG/ML CARP IV PRN (15:28)
[2021-04-12] MEDS ORDERED: LORazepam 0.5 MG TAB SL PRN (15:28)
[2021-04-12] MEDS ORDERED: LORazepam 0.5 MG/1 ML VIAL IV PRN (15:28)
[2021-04-12] MEDS ORDERED: ONDANSETRON INJ 2 MG/ML 2 ML VIAL IV PRN (15:28)
[2021-04-12] MEDS ORDERED: MoRPHine SULFATE 5 MG/0.25 ML UDP PO PRN (15:28)
--- NOTE | 2021-04-12 15:33 | Hospitalist Progress Note ---
Date of Service April 12, 2021 Assessment & Plan (1) Ischemic stroke: Presented with acute onset of dysarthria and right-sided weakness. S/P tPA in the ER after telestroke consultation with Rekha CT angiogram the head and neck show high-grade stenosis of the left ICA which was again confirmed on repeat MRA Overnight on the first night of admission, he had significant worsening of his symptoms after some initial improvement as per notation from admitting physician Rekha was consulted again and repeat imaging was performed which shows extensive stroke in the MCA territory throughout left temporoparietal lobes, left basal ganglia into the reynoso radiata and frontal and occipital and insular cortex. 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 Patient is slightly more alert and awake and following some commands on 04/09, right side remains flaccid. Remains with facial droop and inability to swallow. Was having neurogenic fevers which are now resolved On 04/10, he is again more awake and alert and following commands, moving the left side on command, trying to vocalize some words but overall still quite disabled NG tube placed and starting tube feeds on 04/10 On 04/11, much more alert and awake but still completely aphasic, not following commands more consistently but can only move the left side. He continues this way on 04/12 He has not had any evidence of brainstem herniation or hemorrhagic conversion. PT/OT/speech therapy-speech therapy unable to complete assessment. PT/OT assess patient on 04/11 and recommend extended care facility and/or SNF with prognosis of poor rehab potential. Speech therapy saw him again on 04/12 and he is still not able to swallow. Palliative care consultation appreciated -After much discussion, the patient's has decided to stop artificial feeds as the patient had indicated that he would not want artificial tube feeds if he was in a condition such as this where he was not able to return to his prior quality of life. Patient's is also interested in pursuing comfort measures only and going home with hospice in the next 1 to 2 days. Discontinue all blood draws, needlesticks and Accu-Cheks, medications, discontinue NG tube and feeds, no artificial fluids. We will transition to comfort measures only Morphine, Ativan, atropine all ordered department store general manager will make referral to home hospice and hope to get him home in the next 1 to 2 days. (2) Received intravenous tissue plasminogen activator (tPA) in emergency department: as above. (3) Hypertensive urgency: BPs elevated on admission, was started on nicardipine gtt now improved after restarting home lisinopril/HCTZ Now discontinuing meds as NG tube being removed (4) Carotid artery stenosis: High-grade stenosis of the LICA With massive stroke as above Not a candidate for urgent intervention at this time due to TPA Transitioning comfort measures only (5) Hypertension: Discontinue meds, transition to COMMUNICATION CLERK (6) Prediabetes: Hemoglobin A1c elevated at 6.4% the prediabetic range Insulin and glucose checks discontinued as transitioned to COMMUNICATION CLERK (7) Fever: Most likely secondary to massive stroke, neurogenic fevers Now resolved Tylenol as needed Received empiric ceftriaxone x48 hours-now discontinued No growth to date and cultures Transition to COMMUNICATION CLERK (8) Gout: No acute issues No home meds (9) Gross hematuria: Secondary to Torres trauma-witnessed patient attempting to pull Torres out Now resolved We will keep Torres catheter in place as transitioning to COMMUNICATION CLERK (10) DVT prophylaxis: Discontinue SQ Lovenox Disposition-downgrade to medical floor on COMMUNICATION CLERK Plan for home with home hospice in the next 1 to 2 days when arrangements can be made Admission and Anticipated Discharge Date Admission Date: April 07, 2021 Subjective Patient will open his eyes to verbal stimulus, but cannot respond. He is moving his left arm without purpose. He has now pulled his NG tube out a total of 4 times and it was replaced again this morning. His is at the bedside and I discussed his care at length with her. I also discussed his care at length with the palliative care nurse practitioner. Speech therapy was in to see him again today and he was not able to swallow. After much discussion about goals of care, the patient's is agreeable to removing the NG tube and discontinuing all artificial feeds and focusing on a transition to comfort measures only. She would like to get him home with hospice in the next 1 to 2 days. I di scussed the case with bilingual patient support caseworker and she will make a referral to home hospice. Review of Systems Review of Systems: Unobtainable due to cognitive status Physical Exam Constitutional: WD/WN, vitals as above Eyes: + anicteric sclerae; + EOM not intact (Right eye deviated medially) Neck: trachea midline, no thyromegaly Respiratory: normal respiratory effort Cardiovascular: Rate/Rhythm: regular rate and regular rhythm Chest (Breasts): Chest: normal inspection of chest Musculoskeletal: Extremities: extremities normal to inspection; no cyanosis and no clubbing Skin: no rashes, warm and dry Neurologic: + focal motor deficit (Right arm and leg flaccid, full strength LUE, moves L foot on command); + CN's not intact (Right facial droop, right eye deviation medially) Speech / Cognition: + expressive aphasia Lymphatic: no lymphedema Results & Data Results & Data ([facility]) Vital Signs (Past 12 Hours) Vital Signs Temp Pulse Resp BP Pulse Ox 04/12/21 11:55 36.6 C 67 31 H 118/74 93 04/12/21 10:55 62 29 H 132/77 94 04/12/21 09:56 68 33 H 149/86 H 93 04/12/21 08:55 36.6 C 55 L 28 H 149/79 H 95 04/12/21 08:00 67 04/12/21 07:55 62 30 H 154/88 H 95 04/12/21 06:55 69 20 111/80 94 04/12/21 04:55 71 23 170/86 H 94 04/12/21 03:55 74 25 H 160/91 H 94 Laboratory Results 04/12/21 04/12/21 04/12/21 Range/Units 12:14 06:33 05:29 WBC 14.46 H (4.8-10.8) K/uL RBC 5.55 (4.7-6.1) M/uL Hgb 14.9 (14.0-18.0) g/dL Hct 44.5 (42-52) % MCV 80.2 (80-100) fL MCH 26.8 (25-34) pg MCHC 33.5 (32-36) g/dL RDW Std Deviation 43.0 (36.4-46.3) fL RDW Coeff of Jessee 14.7 H (11.5-14.5) % Plt Count 185 (130-400) K/uL MPV 11.7 H (7.4-10.4) fL Immature Gran % (Auto) 0.3 % Neut % (Auto) 81.9 % Lymph % (Auto) 9.8 % Mcclain % (Auto) 7.8 % Eos % (Auto) 0.1 % Baso % (Auto) 0.1 % Neut # (Auto) 11.84 H (1.4-6.5) K/uL Lymph # (Auto) 1.42 (1.2-3.4) K/uL Mcclain # (Auto) 1.13 H (0.11-0.59) K/uL Eos # (Auto) 0.01 (0-0.5) K/uL Baso # (Auto) 0.01 (0-0.2) K/uL Immature Gran # (Auto) 0.05 H (0.00-0.02) K/uL Sodium (136-145) mmol/L Potassium (3.5-5.1) mmol/L Chloride (98-107) mmol/L Carbon Dioxide (21-32) mmol/L Anion Gap (3-11) BUN (7-18) mg/dl Creatinine (0.6-1.4) mg/dl Est Cr Clr Drug Dosing ml/min Est GFR ( Amer) ml/min Est GFR (Non-Af Amer) ml/min BUN/Creatinine Ratio (10-20) Glucose (70-99) mg/dl POC Glucose 141 H 146 H (70-99) mg/dl Calcium (8.5-10.1) mg/dl Phosphorus (2.5-4.9) mg/dl Magnesium (1.8-2.4) mg/dl Total Bilirubin (0.2-1) mg/dl AST (15-37) U/L ALT (12-78) U/L Alkaline Phosphatase (45-117) U/L Total Protein (6.4-8.2) gm/dl Albumin (3.4-5.0) gm/dl Globulin (2.5-4.0) gm/dl Albumin/Globulin Ratio (0.9-2) 0604/12/21 04/11/21 Range/Units 05:29 00:32 17:50 WBC (4.8-10.8) K/uL RBC (4.7-6.1) M/uL Hgb (14.0-18.0) g/dL Hct (42-52) % MCV (80-100) fL MCH (25-34) pg MCHC (32-36) g/dL RDW Std Deviation (36.4-46.3) fL RDW Coeff of [place] (11.5-14.5) % Plt Count (130-400) K/uL MPV (7.4-10.4) fL Immature Gran % (Auto) % Neut % (Auto) % Lymph % (Auto) % [place]clain % (Auto) % Eos % (Auto) % Baso % (Auto) % Neut # (Auto) (1.4-6.5) K/uL Lymph # (Auto) (1.2-3.4) K/uL [place]cl[place] # (Auto) (0.11-0.59) K/uL Eos # (Auto) (0-0.5) K/uL Baso # (Auto) (0-0.2) K/uL Immature Gran # (Auto) (0.00-0.02) K/uL Sodium 140 (136-145) mmol/L Potassium 3.6 (3.5-5.1) mmol/L Chloride 109 H (98-107) mmol/L Carbon Dioxide 22 (21-32) mmol/L Anion Gap 8.0 (3-11) BUN 25 H (7-18) mg/dl Creatinine 0.96 (0.6-1.4) mg/dl Est Cr Clr Drug Dosing 67.6 ml/min Est GFR ( Amer) 86.8 ml/min Est GFR (Non-Af Amer) 74.9 ml/min BUN/Creatinine Ratio 26.3 H (10-20) Glucose 155 H (70-99) mg/dl POC Glucose 120 H 122 H (70-99) mg/dl Calcium 8.7 (8.5-10.1) mg/dl Phosphorus 3.3 (2.5-4.9) mg/dl Magnesium 2.4 (1.8-2.4) mg/dl Total Bilirubin 2.1 H (0.2-1) mg/dl AST 44 H (15-37) U/L ALT 44 (12-78) U/L Alkaline Phosphatase 122 H (45-117) U/L Total Protein 6.5 (6.4-8.2) gm/dl Albumin 3.1 L (3.4-5.0) gm/dl Globulin 3.4 (2.5-4.0) gm/dl Albumin/Globulin Ratio 0.9 (0.9-2) Diagnostic Findings KUB X-Ray 04/11/21 21:48 KUB HISTORY: Corsafe placement COMPARISON: KUB 04/11/2021. FINDINGS: Feeding tube is located within the stomach with the tip terminating at the fundus. Mildly dilated gas-filled loops of bowel remain unchanged. No renal calculi. No ureteral calculi. No pneumoperitoneum or pneumatosis. IMPRESSION: The tip of the feeding tube is located within the fundus of the stomach. ACT 112: Negative or not required by law. Electronically signed by: Rigo Amin M.D. 04/12/2021 7:52 AM KUB X-Ray 04/12/21 02:17 XR KUB/Abdomen 1 view CLINICAL HISTORY: Coresafe placement COMPARISON STUDY: April 11, 2021 FINDINGS: Few gas-filled loops of large bowel are seen within the central aspect of the abdomen which measure up to 6 cm in diameter. Stable position of feeding tube with tip terminating within left upper quadrant, below level of hemidiaphragm Examination is slightly limited due to motion artifact. IMPRESSION: 1. Tip of the feeding tube is seen below level of the left hemidiaphragm. 2. Gas-filled loops of large bowel within upper limits of normal. ACT 112: Negative or not required by law. The above report was generated using voice recognition software. It may contain grammatical, syntax or spelling errors. Electronically signed by: Cherelle Horvath DO 04/12/2021 9:30 AM Gallbladder Ultrasound 04/12/21 08:04 ABDOMINAL ULTRASOUND, RIGHT UPPER QUADRANT HISTORY: elevated LFTs. COMPARISON: Abdomen and pelvis CT 05/22/2019. FINDINGS: Pancreas: Obscured by overlying bowel gas. Liver: Unremarkable. Gallbladder: No gallbladder wall thickening. No gallstones. A 4 mm gallbladder polyp. CBD: 6 mm. Right kidney: No hydronephrosis. IMPRESSION: 1. A 4 mm gallbladder polyp. No gallstones. 2. The pancreas was obscured by overlying bowel gas. 3. Normal liver. ACT 112: Negative or not required by law. Electronically signed by: Rigo Amin M.D. 04/12/2021 12:54 PM PG Care Time/CCT Total # of Minutes Spent Total Time Spent with Patient: Total time spent is greater than 50% in coordination of care (as documented) at patient's floor/unit and/or counseling patient: Coding Level of Care Code 07003 Subseq Hosp Care Lvl 3 Diagnoses Ischemic stroke I63.9 Received intravenous tissue plasminogen activator (tPA) in emergency department Z92.82 Hypertensive urgency I16.0 Carotid artery stenosis I65.29 Hypertension I10 Hypertension type: unspecified Prediabetes R73.03 Fever R50.9 Gout M10.9 Gross hematuria R31.0 DVT prophylaxis Z29.9 (1) Hypertension Hypertension type: unspecified Qualified Code(s): I10 - Essential (primary) hypertension
[2021-04-13] MEDS ORDERED: STROKE PATIENT DISCHARGE STA (12:11)
--- NOTE | 2021-04-13 12:15 | Discharge Summary ---
Date of Service April 13, 2021 Admission HPI Per Admitting Provider 80 yo male comes into the ER with PMH described below. He came in with dysarthia which occured at 11. He was in the car with his when this occurred, and they were planning on going on a trip. However, once she noticed dysarthia she took him to the ER. Telestroke consult called and patient was given tPA. Initially symptoms improved, however, the dysarthia and right arm weakness returned. CT head and CTA were negative, admission was called. Principal Diagnosis Acute ischemic left MCA territory stroke Discharge Exam Constitutional WD/WN, vitals as above Eyes + anicteric sclerae; + EOM not intact (Right eye deviated medially) ENMT external ear and nose normal, oropharynx normal Neck trachea midline, no thyromegaly Respiratory normal respiratory effort, lungs clear to auscultation Cardiovascular RRR, no murmur, no edema Chest (Breasts) Chest: normal inspection of chest Gastrointestinal (Abdomen) normal bowel sounds, soft, nontender, no hepatosplenomegaly Musculoskeletal Extremities: extremities normal to inspection; no cyanosis and no clubbing Skin no rashes, warm and dry Neurologic + focal motor deficit (Right arm and leg flaccid, full strength LUE, moves L foot on command); + CN's not intact (Right facial droop, right eye deviation medially) Speech / Cognition: + expressive aphasia Lymphatic no lymphedema Discharge Data Allergies Allergy/AdvReac Type Severity Reaction Status Date / Time No Known Allergies Allergy Verified 04/07/21 14:55 Consultations 04/07/21 14:57 Consult Scrubber System Attendant Routine 04/07/21 15:02 ED Decision to Admit Stat 04/07/21 15:06 Consult Neurology Routine 04/08/21 07:51 Consult Palliative Care Routine 04/12/21 15:28 Consult Palliative Care Routine Ordered Studies 04/07/21 12:32 CT head/brain wo con Stat 04/07/21 12:38 CT angio head w con Stat CT angio neck with con Stat 04/07/21 15:02 CT head/brain wo con Stat 04/07/21 17:38 CT head/brain wo con Stat 04/08/21 13:00 CT head/brain wo con Routine 04/08/21 21:09 MR angio head wo con Stat MR angio neck wo/w con Stat 04/08/21 21:12 MR brain wo con Stat 04/09/21 13:30 CT head/brain wo con Routine 04/12/21 08:04 US gallbladder Urgent Hospital Course (1) Ischemic stroke: Presented with acute onset of dysarthria and right-sided weakness. S/P tPA in the ER after telestroke consultation with Rekha CT angiogram the head and neck show high-grade stenosis of the left ICA which was again confirmed on repeat MRA Overnight on the first night of admission, he had significant worsening of his symptoms after some initial improvement as per notation from admitting physician Rekha was consulted again and repeat imaging was performed which shows extensive stroke in the MCA territory throughout left temporoparietal lobes, left basal ganglia into the reynoso radiata and frontal and occipital and insular cortex. 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 Patient is slightly more alert and awake and following some commands on 04/09, right side remains flaccid. Remains with facial droop and inability to swallow. Was having neurogenic fevers which are now resolved On 04/10, he is again more awake and alert and following commands, moving the left side on command, trying to vocalize some words but overall still quite disabled NG tube placed and starting tube feeds on 04/10 On 04/11, much more alert and awake but still completely aphasic, not following commands more consistently but can only move the left side. He continues this way on 04/12 He has not had any evidence of brainstem herniation or hemorrhagic conversion. PT/OT/speech therapy-speech therapy unable to complete assessment. PT/OT assess patient on 04/11 and recommend extended care facility and/or SNF with prognosis of poor rehab potential. Speech therapy saw him again on 04/12 and he is still not able to swallow. Palliative care consultation appreciated -After much discussion, the patient's has decided to stop artificial feeds as the patient had indicated that he would not want artificial tube feeds if he was in a condition such as this where he was not able to return to his prior quality of life. Patient's is also interested in pursuing comfort measures only and going home with hospice Discontinued all blood draws, needlesticks and Accu-Cheks, medications, discontinue NG tube and feeds, no artificial fluids. Transition to comfort measures only Morphine, Ativan, atropine all ordered (2) Received intravenous tissue plasminogen activator (tPA) in emergency department: as above. (3) Hypertensive urgency: BPs elevated on admission, was started on nicardipine gtt now improved after restarting home lisinopril/HCTZ Now discontinuing meds as NG tube being removed (4) Carotid artery stenosis: High-grade stenosis of the LICA With massive stroke as above Not a candidate for urgent intervention at this time due to TPA Transitioning comfort measures only (5) Hypertension: Discontinue meds, transition to WASH HELPER (6) Prediabetes: Hemoglobin A1c elevated at 6.4% the prediabetic range Insulin and glucose checks discontinued as transitioned to WASH HELPER (7) Fever: Most likely secondary to massive stroke, neurogenic fevers Now resolved Tylenol as needed Received empiric ceftriaxone x48 hours-now discontinued No growth to date and cultures Transition to WASH HELPER (8) Gout: No acute issues No home meds (9) Gross hematuria: Secondary to Torres trauma-witnessed patient attempting to pull Torres out Now resolved We will keep Torres catheter in place as transitioning to WASH HELPER (10) DVT prophylaxis: Discontinue SQ Lovenox Disposition- Plan for home with home hospice today Total Time Total Time Spent Total Time Spent (In Minutes): 35 min Total Time Includes: Examination of the Patient, Discharge Planning and Medication Reconciliation Discharge Plan Discharge Items Patient Disposition: Hospice - Home Reason For Visit: STROKE Discharge Diagnosis: Stroke Condition on Discharge: Fair Activity: As commented below Bathing: No limitations Exercise/Sports: Rest today Non-emergency contact: Primary Care Provider Call non-emergency contact if: you have any medication questions and your symptoms worsen Follow-up/Referrals: Krystyna Ortez PA-C [Primary Care Provider] - (You do not need to follow up with your PCP as you are going home with Home Hospice ) Diet: Nothing by Mouth Addtl Attending Provider Instructions: Unfortunately, you suffered a very large stroke and are very debilitated. You are going home with hospice to focus on comfort care at this time. You can take morphine as needed for pain or breathlessness, lorazepam as needed for anxiety or agitation, and atropine drops as needed for excessive secretions. If you have any questions or concerns, please call your home hospice agency. Pending Studies at Discharge: No Stand-Alone Forms: My [facility] Medications and DC Order Prescriptions: New lorazepam 0.5 mg Tablet 0.5 mg sublingual Q4H PRN (Reason: agitation or anxiety) Qty: 7 RF: 0 morphine concentrate 100 mg/5 mL (20 mg/mL) Solution 5 mg buccal Q3H PRN (Reason: pain or breathlessness) Qty: 30 RF: 0 atropine 1 % Drops 4 drp sublingual Q1H PRN (Reason: secretions) Qty: 15 RF: 0 Discontinued acetaminophen [Tylenol] 325 mg Tablet 325 mg PO Q6H PRN (Reason: Pain) RF: 0 lisinopril-hydrochlorothiazide 10-12.5 mg tablet 1 tab PO QAM RF: 0 Discharge Orders: Discharge Order (Routine); Ordered 04/13/21 Ordered By: Yodit Duffy/Other Patient Handouts: A1C Admission Data Admit Date/Time: 04/07/21 14:57 Attending Provider: Yodit Blanton Admit Provider: Ronal Marsh Primary Care Provider: Krystyna Ortez Other Providers: Leidy Mohr ; [facility] ; [facility] ; Ronal Marsh ; Ashly Garcia Coding Level of Care Code D/C Day Management >30 mins Diagnoses Ischemic stroke I63.9 Received intravenous tissue plasminogen activator (tPA) in emergency department Z92.82 Hypertensive urgency I16.0 Carotid artery stenosis I65.29 Hypertension I10 Hypertension type: unspecified Prediabetes R73.03 Fever R50.9 Gout M10.9 Gross hematuria R31.0 DVT prophylaxis Z29.9
== END 2021-04-13 14:50 | disposition hospice, home (50) | DRG 62 ==
LOC: ED 12:19 → SUATTDRO 14:57 → 1E 14:57 → 3W 04-12 15:31